=== PATIENT | female | born 1975 | race Caucasian/White ===

== ENCOUNTER 2018-01-09 09:37 | Observation (INO) ==
[2018-01-09] MEDS ORDERED: 0.9 % Sodium Chloride 1,000 ML IVC ONE (09:43)
[2018-01-09 09:54] LABS: Basophils # 0.1 K/mcL (0.0-0.2); Basophils % 0.8 %; Eosinophils # 0.1 K/mcL (0.0-0.6); Eosinophils % 1.3 %; Hematocrit 45.8 % (35.3-44.9); Hemoglobin 15.4 g/dL (11.5-15.4); Immature Granulocytes % 0.3 % (0-4); Lymphocytes # 4.1 K/mcL (0.6-4.6); Lymphocytes % 46.8 %; Mean Corpuscular HGB Conc 33.6 g/dL (31.6-35.5); Mean Corpuscular Hemoglobin 29.5 pg (28.0-33.3); Mean Corpuscular Volume 87.7 fL (83.0-100.0); Mean Platelet Volume 11.9 fL (9.4-12.4); Monocytes # 0.6 K/mcL (0.0-1.3); Neutrophils # 3.8 K/mcL (1.6-8.9); Platelet Count 272 K/mcL (140-400); Red Blood Count 5.22 M/mcL (3.82-4.97); Red Cell Distribution Width 12.3 % (11.5-14.5); Segmented Neutrophils % 43.8 %
[2018-01-09] MEDS ORDERED: Alteplase (Activase) 6 MG in EMPTY BAG 1 EACH IVP ONE (09:55)
[2018-01-09] MEDS ORDERED: ALTEPLASE IVPB ONE (09:57)
[2018-01-09 10:06] LABS: Calcium 11.4 mg/dL (8.6-10.3); Carbon Dioxide 27 mEq/L (23-29); Chloride 96 mEq/L (98-107); Sodium 138 mEq/L (136-145)
[2018-01-09 10:11] LABS: BUN/Creatinine Ratio 15 (6-26); Blood Urea Nitrogen 14 mg/dL (6-20); Glucose 139 mg/dL (70-105); Osmolality,Calculated 289 (280-300); eGFR For African Americans > 60 (> 60); eGFR For Non-African Americans > 60 (> 60)
[2018-01-09 10:12] LABS: Prothrombin Time 10.6 Seconds (9.4-12.1)
[2018-01-09 10:15] LABS: Activated Partial Thrombo Time 30.6 Seconds (26.0-36.0)
--- NOTE | 2018-01-09 10:37 | Emergency Department Note ---
Disposition Clinical Impression: Transient neurologic deficit, Pre-syncope, Cerebellar stroke Disposition: Admitted As Inpatient Condition: Fair Time of Disposition: 15:10 Weakness HPI - General Chief complaint: ED Weakness Stated complaint: poss stroke Time Seen by Provider: 01/09/18 09:43 Source: patient Limitations: no limitations Nursing Notes Reviewed: Yes Vital Signs Reviewed: Yes - History of Present Illness HPI Narrative: 42 yo female complains of generalized weakness while using the bathroom here at [facility]. Pt works at [employer]. she suddenly felt flushed weak all over, and diaphoretic and called for help. No LOC. there was concern for stroke and was brought to the ED with last known well 0902 hrs. Pt states she has not had anything like this happen before. Pain Scale: 0 - Related Data Home Medications Medication Instructions Recorded Confirmed ALPRAZolam [Xanax 1 MG Tablet] 1 mg PO TID PRN 01/09/18 01/09/18 Atorvastatin Calcium [Lipitor] 20 mg PO QPM 01/09/18 01/09/18 BuPROPion SR (12 HR) [Wellbutrin 150 mg PO BID 01/09/18 01/09/18 SR] Metoprolol Succinate [Toprol Xl] 100 mg PO DAILY 01/09/18 01/09/18 Omeprazole [PriLOSEC] 20 mg PO DAILY 01/09/18 01/09/18 Pentosan Polysulfate Sodium 100 mg PO TID 01/09/18 01/09/18 [Elmiron] cloNIDine HCl [CloNIDine HCl] 0.1 mg PO BID 01/09/18 01/09/18 Allergies Allergy/AdvReac Type Severity Reaction Status Date / Time No Known Allergies Allergy Verified 05/13/17 15:25 All systems ED: reviewed and negative except as stated. Review of Systems: As Per HPI Constitutional: Reports: weakness. Denies: fever, chills Cardiovascular: Denies: chest pain, palpitations Respiratory: Denies: cough, dyspnea Gastrointestinal: Reports: diarrhea. Denies: abdominal pain, nausea, vomiting Past Medical History - Past Medical History Attestation: Yes The following information was validated with the patient. Source: patient, nursing notes reviewed Medical history: Reports: hypertension Surgical history: Reports: non-contributory Psychiatric history: Reports: anxiety, depression - Social History Smoking Status: Former smoker Smokeless Tobacco Status: No Alcohol use: Reports: none Drug use: Reports: none Physical Exam Vital Signs Temperature 97.4 F L 01/09/18 09:38 Pulse Rate 71 01/09/18 09:38 Respiratory Rate 18 01/09/18 09:38 Blood Pressure 117/94 01/09/18 09:38 O2 Sat by Pulse Oximetry 98 01/09/18 09:38 Temperature 97.4 F L 01/09/18 09:38 Pulse Rate 61 01/09/18 10:10 Respiratory Rate 14 01/09/18 10:10 Blood Pressure 100/64 01/09/18 10:10 O2 Sat by Pulse Oximetry 100 01/09/18 10:04 Oxygen Delivery Oxygen Delivery Room Air CONSTITUTIONAL: Alert and oriented X3, well-nourished, well appearing, and anxious. GCS 15 HEAD: Normocephalic; atraumatic. EYES: PERRL, no scleral icterus. NOSE: The nose is normal in appearance without rhinorrhea RESP: Normal chest excursion with respiration; breath sounds clear and equal bilaterally; no wheezes, rhonchi, or rales CARD: Regular rhythm, without murmurs, rub or gallop ABD: Non-distended; non-tender, soft,without rigidity, rebound or guarding SKIN: Normal for age and race; warm and dry; no apparent lesions NEUROLOGICAL: Patient is alert and oriented times three. Cranial nerves III- XII are intact. Sensory diminished on left UE but motor functions are intact. Strength is 5/5 for flexion and extension in all 3 extremities. 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 Patellar DTRS are equal and intact. Finger to nose testing is equal and normal bilaterally. No dysdiadochokinesis - General Limitations: no limitations General appearance: alert, in distress Course Vital Signs Temperature 97.4 F L 01/09/18 09:38 Pulse Rate 71 01/09/18 09:38 Respiratory Rate 18 01/09/18 09:38 Blood Pressure 117/94 01/09/18 09:38 O2 Sat by Pulse Oximetry 98 01/09/18 09:38 Temperature 98.2 F 01/09/18 19:00 Pulse Rate 61 01/09/18 19:00 Respiratory Rate 20 01/09/18 19:00 Blood Pressure 115/83 01/09/18 19:00 O2 Sat by Pulse Oximetry 98 01/09/18 19:00 Oxygen Delivery Oxygen Delivery Room Air Weakness - MDM Narrative Medical decision making narrative: generalized weakness with some focal deficits: CVA: Stroke / TIA, syncope/pre- syncope. NIH 4 Stroke alert called, the findings of limited ataxia, and decrease in sensation to left upper extremity. Patient was sent for CT head. Radiologist's read as no clear signs of stroke but made a comment of a left occipital lobe hypodense area and asked if patient had any visual field defects, but Patient did not have any visual field defects. After evaluation by [facility] neurologists who recommended no TPA but suspect cerebellar infarct and recommend admission and further workup. He states is up to the patient whether the patient wanted to be transferred to [facility] or remained here to [facility]. The patient agreed to stay at a [facility]. Given the patient's onset of symptoms that sound more like presyncope versus stroke with associated anxiety attack, especially with patient's quick resolution of symptoms after she calmed down, I feel the patient should have a positive recovery. However, we cannot fully and clearly rule out stroke/TIA is why I concur with decision for admission. Patient is accepted for admission by Brisa the hospitalist in stable condition. - Lab Data Lab results reviewed: Yes I reviewed the patient's lab results. Lab results narrative: Short CBC 01/09/18 Range/Units 09:40 WBC 8.7 (4.3-11.1) K/mcL Hgb 15.4 (11.5-15.4) g/dL Hct 45.8 H (35.3-44.9) % Plt Count 272 (140-400) K/mcL Neutrophils # 3.8 (1.6-8.9) K/mcL BMP 01/09/18 Range/Units 09:40 Sodium 138 (136-145) mEq/L Potassium 3.0 L (3.5-5.1) mEq/L Chloride 96 L (98-107) mEq/L Carbon Dioxide 27 (23-29) mEq/L BUN 14 (6-20) mg/dL Creatinine 0.94 (0.60-1.20) mg/dL Glucose 139 H (70-105) mg/dL Calcium 11.4 H (8.6-10.3) mg/dL Cardiac Enzymes 01/09/18 Range/Units 09:40 Troponin I < 0.03 (< 0.04) ng/mL Result diagrams: 01/09/18 09:40 01/09/18 09:40 Lab Results 01/09/18 01/09/18 01/09/18 Range/Units 09:40 09:40 09:40 WBC 8.7 (4.3-11.1) K/mcL RBC 5.22 H (3.82-4.97) M/mcL Hgb 15.4 (11.5-15.4) g/dL Hct 45.8 H (35.3-44.9) % MCV 87.7 (83.0-100.0) fL MCH 29.5 (28.0-33.3) pg MCHC 33.6 (31.6-35.5) g/dL RDW 12.3 (11.5-14.5) % Plt Count 272 (140-400) K/mcL MPV 11.9 (9.4-12.4) fL Immature Gran % 0.3 (0-4) % Seg Neutrophils % 43.8 % Lymphocytes % 46.8 % Monocytes % 7.0 % Eosinophils % 1.3 % Basophils % 0.8 % Neutrophils # 3.8 (1.6-8.9) K/mcL Lymphocytes # 4.1 (0.6-4.6) K/mcL Monocytes # 0.6 (0.0-1.3) K/mcL Eosinophils # 0.1 (0.0-0.6) K/mcL Basophils # 0.1 (0.0-0.2) K/mcL PT 10.6 (9.4-12.1) Seconds INR 1.0 APTT 30.6 (26.0-36.0) Seconds Sodium 138 (136-145) mEq/L Potassium 3.0 L (3.5-5.1) mEq/L Chloride 96 L (98-107) mEq/L Carbon Dioxide 27 (23-29) mEq/L BUN 14 (6-20) mg/dL Creatinine 0.94 (0.60-1.20) mg/dL Est GFR ( Amer) > 60 (> 60) Est GFR (Non-Af Amer) > 60 (> 60) BUN/Creatinine Ratio 15 (6-26) Glucose 139 H (70-105) mg/dL Calculated Osmolality 289 (280-300) Calcium 11.4 H (8.6-10.3) mg/dL Troponin I (< 0.04) ng/mL Urine Test (Negative) Stl C. diff Tox B Gene (Negative) Urine Opiates Screen (Vliisj=051) ng/mL Ur Barbiturates Screen (Upgdce=508) ng/mL Ur Phencyclidine Scrn (Cutoff=25) ng/mL Ur Amphetamines Screen (Ngxuie=7078) ng/mL U Benzodiazepines Scrn (Dcjeoa=734) ng/mL Urine Cocaine Screen (Cutoff= 300) ng/mL U Marijuana (THC) Screen (Cutoff = 50) ng/mL 01/09/18 01/09/18 01/09/18 Range/Units 09:40 11:01 11:01 WBC (4.3-11.1) K/mcL RBC (3.82-4.97) M/mcL Hgb (11.5-15.4) g/dL Hct (35.3-44.9) % MCV (83.0-100.0) fL MCH (28.0-33.3) pg MCHC (31.6-35.5) g/dL RDW (11.5-14.5) % Plt Count (140-400) K/mcL MPV (9.4-12.4) fL Immature Gran % (0-4) % Seg Neutrophils % % Lymphocytes % % Monocytes % % Eosinophils % % Basophils % % Neutrophils # (1.6-8.9) K/mcL Lymphocytes # (0.6-4.6) K/mcL Monocytes # (0.0-1.3) K/mcL Eosinophils # (0.0-0.6) K/mcL Basophils # (0.0-0.2) K/mcL PT (9.4-12.1) Seconds INR APTT (26.0-36.0) Seconds Sodium (136-145) mEq/L Potassium (3.5-5.1) mEq/L Chloride (98-107) mEq/L Carbon Dioxide (23-29) mEq/L BUN (6-20) mg/dL Creatinine (0.60-1.20) mg/dL Est GFR ( Amer) (> 60) Est GFR (Non-Af Amer) (> 60) BUN/Creatinine Ratio (6-26) Glucose (70-105) mg/dL Calculated Osmolality (280-300) Calcium (8.6-10.3) mg/dL Troponin I < 0.03 (< 0.04) ng/mL Urine Test Negative (Negative) Stl C. diff Tox B Gene (Negative) Urine Opiates Screen Negative (Qkgxth=157) ng/mL Ur Barbiturates Screen Negative (Fwchvr=317) ng/mL Ur Phencyclidine Scrn Negative (Cutoff=25) ng/mL Ur Amphetamines Screen Negative (Xhrehc=6553) ng/mL U Benzodiazepines Scrn Positive H (Qcvqaj=616) ng/mL Urine Cocaine Screen Negative (Cutoff= 300) ng/mL U Marijuana (THC) Screen Negative (Cutoff = 50) ng/mL 01/09/18 01/09/18 Range/Units 14:01 15:15 WBC (4.3-11.1) K/mcL RBC (3.82-4.97) M/mcL Hgb (11.5-15.4) g/dL Hct (35.3-44.9) % MCV (83.0-100.0) fL MCH (28.0-33.3) pg MCHC (31.6-35.5) g/dL RDW (11.5-14.5) % Plt Count (140-400) K/mcL MPV (9.4-12.4) fL Immature Gran % (0-4) % Seg Neutrophils % % Lymphocytes % % Monocytes % % Eosinophils % % Basophils % % Neutrophils # (1.6-8.9) K/mcL Lymphocytes # (0.6-4.6) K/mcL Monocytes # (0.0-1.3) K/mcL Eosinophils # (0.0-0.6) K/mcL Basophils # (0.0-0.2) K/mcL PT (9.4-12.1) Seconds INR APTT (26.0-36.0) Seconds Sodium (136-145) mEq/L Potassium (3.5-5.1) mEq/L Chloride (98-107) mEq/L Carbon Dioxide (23-29) mEq/L BUN (6-20) mg/dL Creatinine (0.60-1.20) mg/dL Est GFR ( Amer) (> 60) Est GFR (Non-Af Amer) (> 60) BUN/Creatinine Ratio (6-26) Glucose (70-105) mg/dL Calculated Osmolality (280-300) Calcium (8.6-10.3) mg/dL Troponin I < 0.03 (< 0.04) ng/mL Urine Test (Negative) Stl C. diff Tox B Gene Negative (Negative) Urine Opiates Screen (Futvpj=928) ng/mL Ur Barbiturates Screen (Scblql=063) ng/mL Ur Phencyclidine Scrn (Cutoff=25) ng/mL Ur Amphetamines Screen (Diqqvy=3567) ng/mL U Benzodiazepines Scrn (Vhvers=200) ng/mL Urine Cocaine Screen (Cutoff= 300) ng/mL U Marijuana (THC) Screen (Cutoff = 50) ng/mL - Radiology Data Radiology results reviewed: Yes I reviewed the patient's radiology results. Head CT 01/09/18 09:44 IMPRESSION: 1. No intracranial hemorrhage 2. Questionable findings of early left occipital lobe ischemia. Recommend correlation with exam findings D/ / Joe Chen MD / Joe Chen MD Interpreting Provider: Joe Chen MD - EKG Data EKG attestation: Yes I reviewed and interpreted this EKG. EKG results narrative: EKG taken 01/09/2018 at 0 940 3R shows a sinus rhythm had a rate of 72 beats. With no signs of ischemia or ST elevations or depressions and a leads. No old EKG for comparison. Attestation Statement - Attestation Attestation: I, Dexter Wright, examined this patient and my medical decision-making was reviewed with the ATTACHER/PA/Advanced Practice Nurse/Resident Physician. I agree with the documented findings, disposition and treatment plan as described except to the extent set forth below. 42-year-old female presents to emergency Department with concerns of near syncopal event with possible CVA. Patient states she had multiple episodes of diarrhea this morning. Prior to arrival she had difficulty making it to the employee bathroom however when she started having a bowel movement she became lightheaded, started to sweat and felt the ground. On initial evaluation the patient had tingling of left sided face, she had increased weakness of the left upper and lower extremity compared to the right. Stroke alert was initiated however patient improved quickly. The neurologist recommended she was not a candidate for emergent TPA however he did recommend patient be admitted to the hospital for further evaluation of possible cerebellar infarct secondary to ataxia noted during exam. Patient denies recent fever. She had no further episodes of diarrhea in the emergency department. Patient will be admitted to the hospital for further care and evaluation. TPA Checklist - LKW: 3-4.5 hrs Add. Warnings/Precautions Patient/family understanding: The patient/family members have been counseled and understood the risk, benefit , and alternatives of treatment. NIH Stroke Scale - Level of Consciousness LOC: Alert - LOC Questions LOC Questions: Answers both correctly - LOC Commands LOC Commands: Performs both correctly - Best Gaze Best Gaze: Normal - Visual Visual: No visual loss - Facial Palsy Facial Palsy: Normal - Motor Arms Motor Arm-Left: No drift for 10 seconds Motor Arm-Right: No drift for 10 seconds - Motor Legs Motor Leg-Left: Some effort against gravity, limb drifts to bed Motor Leg-Right: No drift for 5 seconds - Limb Ataxia Limb Ataxia: Present in ONE limb - Sensory Sensory: Mild to moderate loss, "not as sharp" - Best Language Best Language: No aphasia - Dysarthria Dysarthria: Normal - Extinction and Inattention Extinction and Inattention: Normal - NIHSS Total Score NIHSS Total Score: 4
[2018-01-09 11:38] LABS: Amphetamine Screen,Urine Negative ng/mL (Cutoff=1000); Barbiturate Screen,Urine Negative ng/mL (Cutoff=200); Benzodiazepines Screen,Urine Positive ng/mL (Cutoff=200); Cannabinoid Screen,Urine Negative ng/mL (Cutoff = 50); Cocaine Screen,Urine Negative ng/mL (Cutoff= 300); Opiate Screen,Urine Negative ng/mL (Cutoff=300); Phencyclidine Screen,Urine Negative ng/mL (Cutoff=25)
[2018-01-09] MEDS ORDERED: Naloxone 0.4 MG/ML INJ IVP PRN (12:54)
--- NOTE | 2018-01-09 13:06 | Internal Med History&Physical ---
Date of Encounter: 01/09/18 Time of Encounter: 13:03 Assessment and Plan (1) CVA (cerebral vascular accident) Current visit: Yes Status: Acute CVA-presents acute onset of left-sided weakness, numbness and tingling and slurred speech. She reports her symptoms have improved since she arrived to the ED. Slurred speech has resolved. CT of the head reveals some concern for left occipital lobe ischemia. Her LKW was at 0900 this morning. She reports dizziness, profound weakness and left-sided weakness as well as numbness and tingling. Per my assessment she has left-sided focal deficits. No prior history of TIA or CVA. She is a non-smoker, with a h/o HTN. -MRI head/brain without contrast -BL Carotid doppler -TTE now -Start ASA 325, first dose now then daily -Continue Statin but increase dose to 80 mg and give now -Her blood pressure is at baseline, continue Antihypertensives -CBC, BMPLipid panel in am -NIHSS now -Dysphagia screening now -Neuro checks q2hrs/per protocol -Consult Neurology- spoke with Dr. Arevalo who has agreed to see the patient. His recommendation is given 325 mg of ASA now. -Heparin 5000units SC BID -Regular diet Qualifiers: CVA mechanism: unspecified Qualified Code(s): I63.9 - Cerebral infarction, unspecified (2) Acute left-sided weakness Current visit: Yes Status: Acute LKW this morning at 0900. She reports that the Lt sided weakness is improving. Secondary to suspected Lt occipital CVA See plan above (3) HTN (hypertension) Current visit: Yes Status: Acute stable, resume antiHTN medications Qualifiers: Hypertension type: essential hypertension Qualified Code(s): I10 - Essential (primary) hypertension (4) Diarrhea Current visit: Yes Status: Acute Began this morning x2 episodes. Unclear if this is infectious. 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 Clarke is a 42 year old female with PMH of hypertension. She reports that little after 9 and returning began experiencing generalized weakness as well as weakness on the left side of her body and numbness and tingling. She reports that while in the restroom she began to feel flush and weak and diaphoretic. She attempted to walk to get help but she was too weak to ambulate so she safely lowered herself to the ground and called for help. Her last known well was 0900. She denies any prior history of CVA or TIA. Denies any fever, chills , chest pain, shortness of breath or unilateral extremity pain or swelling. She admits to dizziness, numbness and tingling over her entire body, slurred speech, generalized weakness as well as weakness to left upper and lower extremity. Past Med Surg Social Fam HX - Past Medical History Medical history: hypertension Psychiatric history: anxiety, depression - Past Surgical History Surgical History: non-contributory - Social History Smoking Status: Former smoker Smokeless Tobacco Status: No Alcohol use: none Drug use: none - Family History Father Living Status: Cause of : [place] [facility] - H&P: Meds ALPRAZolam [Xanax 1 MG Tablet] 1 mg PO TID PRN 01/09/18 [History] Atorvastatin Calcium [Lipitor] 20 mg PO QPM 01/09/18 [History] BuPROPion SR (12 HR) [Wellbutrin SR] 150 mg PO BID 01/09/18 [History] Metoprolol Succinate [Toprol Xl] 100 mg PO DAILY 01/09/18 [History] Omeprazole [PriLOSEC] 20 mg PO DAILY 01/09/18 [History] Pentosan Polysulfate Sodium [Elmiron] 100 mg PO TID 01/09/18 [History] cloNIDine HCl [CloNIDine HCl] 0.1 mg PO BID 01/09/18 [History] 3 Allergy/AdvReac Type Severity Reaction Status Date / Time No Known Allergies Allergy Verified 05/13/17 15:25 All Systems PM: A 10-system review of systems was performed and is negative for pertinent findings except as documented above in the HPI. - Constitutional Constitutional: as per HPI - EENT Eyes: as per HPI, no blurry vision, no change in vision, no loss of peripheral vision, no loss of vision Nose, mouth and throat: as per HPI - Cardiovascular Cardiovascular ROS IM: irregular heart rhythm, lightheadedness, palpitations, no chest pain, no dyspnea, no dyspnea on exertion, no edema, no syncope - Respiratory Respiratory: no cough, no dyspnea, no wheezing, no excessive phlegm production - Gastrointestinal Gastrointestinal: abdominal pain (crampy pain), diarrhea (began today) - Genitourinary Genitourinary: no change in urinary stream, no dysuria, no flank pain, no hematuria - Musculoskeletal Musculoskeletal ROS IM: no numbness, no tingling - Integumentary Integumentary IM: no rash, no unusual bruising - Neurological Neurological ROS: as per HPI, abnormal speech, dizziness, focal weakness, numbness, tingling, weakness, no abnormal gait, no abnormal hearing, no abnormal movements, no behavioral changes, no burning sensations, no confusion, no convulsions, no headache(s), no lack of coordination, no loss of vision, no tremor(s), no vertigo - Constitutional Vitals: Temp Pulse Resp BP Pulse Ox 97.4 F L 64 18 138/98 100 01/09/18 09:38 01/09/18 11:46 01/09/18 11:46 01/09/18 11:46 01/09/18 11:46 General appearance: Present: cooperative, A&O X 3, no acute distress, answers questions appropriately - Head Head exam: Present: atraumatic, normocephalic - Eye Eye exam: Present: PERRL, conjuntiva pink, sclera anicteric Pupils: Present: PERRL - Neck Neck exam general surgery: Present: supple, trachea midline. Absent: lymphadenopathy - Respiratory Respiratory exam: Present: CTAB. Absent: accessory muscle use, rales, rhonchi, wheezes - Cardiovascular Cardiovascular exam: Present: RRR, +S1, +S2. Absent: diastolic murmur, gallop, rubs, systolic murmur - GI/Abdominal GI/Abdominal exam: Present: normal bowel sounds, soft, no peritoneal signs. Absent: distended, tenderness - Extremities Exam Extremities exam: Present: warm, radial pulses palpable and symmetrical. Absent : calf tenderness, cyanotic, pedal edema - Neurological Exam Neurological exam: Present: alert, oriented X3, pronater drift (Lt arm pronator drift). Absent: strengths equal and symetr throughout, facial droop, speech deficit - Expanded Neurological Exam Neurological exam expanded: Absent: expressive aphasia, receptive aphasia Patient oriented to: Present: person, place, time Speech: Present: fluid speech. Absent: slurred (reports that it was initially slurred but has improved) Cranial Nerves: EOM's intact PM: Normal, gag reflex PM: Normal, nystagmus PM: Normal, tongue deviation PM: Normal Cerebellar function: finger to nose: Normal, heel to aguilar: Abnormal Left Upper motor neuron: Babinski sign: Normal, Boo neglect: Normal, pronator drift : Abnormal Left, sensory extinction: Normal Neuro motor strength exam: LUE: 4, RUE: 5, LLE: 4, RLE: 5 Coma Scale Eye Opening: Spontaneous Coma Scale Motor Response: Obeys Commands Coma Scale Verbal Response: Oriented Coma Scale Total: 15 - Skin Skin exam: Present: dry, intact Internal Med - H&P Results - Labs CBC & Chem 7: 01/09/18 09:40 01/09/18 09:40 Labs: Short CBC 01/09/18 Range/Units 09:40 WBC 8.7 (4.3-11.1) K/mcL Hgb 15.4 (11.5-15.4) g/dL Hct 45.8 H (35.3-44.9) % Plt Count 272 (140-400) K/mcL Neutrophils # 3.8 (1.6-8.9) K/mcL BMP 01/09/18 09:40 Sodium 138 Potassium 3.0 L Chloride 96 L Carbon Dioxide 27 BUN 14 Creatinine 0.94 Glucose 139 H Calcium 11.4 H Cardiac Enzymes 01/09/18 Range/Units 09:40 Troponin I < 0.03 (< 0.04) ng/mL - EKG Data -: EKG Interpreted by Myself EKG shows normal: sinus rhythm - EKG Data Prior EKG available for review: yes When compared to previous EKG: there is no significant change Interpretation IM: normal EKG EKG comments: NSR 72 no ischemic changes 01/09/18 13:12 - Impressions ITS Impressions Head CT 01/09/18 09:44 IMPRESSION: 1. No intracranial hemorrhage 2. Questionable findings of early left occipital lobe ischemia. Recommend correlation with exam findings D/ / Joe Chen MD / Joe Chen MD Interpreting Provider: Joe Chen MD
--- NOTE | 2018-01-09 15:07 | Neurology - Consult Note ---
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 She was brought to the emergency department and a code stroke was called where she was evaluated by [facility] neurology and found to have diminished heel to aguilar using her left foot. All her other symptoms resolved spontaneously without intervention. - Initial vitals demonstrate temperature 97.4, heart rate 71, respirations 18, blood pressure 117/94, oxygen saturation 98% on room air. The blood pressure is low compared to what she states is her baseline of SBP 160-200 which may be a contributing factor. - CT of the brain demonstrates questionable findings of early left occipital lobe ischemia. Correlating with physical examination she denies any visual changes, and no loss of visual wilson were demonstrated on clinical examination. Ophthalmic examination, I did not appreciate any retinal vascularity hemorrhaging or noticeable changes. At this time there does not appear to be any appreciable correlation. - Patient states that she has new left distal lower extremity weakness and difficulty with left heel to right aguilar motor coordination. This is appreciated on initial examphysical examination, though improved with repeat actions. Of note she does have a history of sciatica and bulging disc to the left lower extremity which may be contributing to these symptoms. DDX: Possible CVA vs. TIA though clinical examination and imaging do not correlate, may be hypoperfusion, vasovagal episode in the setting of new onset diarrhea plus antihypertensive medications. Also possible secondary effects from medications as she is taking Wellbutrin, clonidine, Effexor. Drug screen positive for benzodiazepines, patient takes Xanax 1 mg by mouth 3 times a day when necessary for anxiety. Plan: - MRI of the brain resulted as no acute intracranial abnormalities. Clinical examination does not correlate with acute stroke. - Cardiac monitoring for possible arrhythmia - Further treatment for diarrhea and review of medications per primary team. (2) Hypercalcemia Current Visit: Yes Status: Acute Patient has elevated calcium on labs at 11.4, which is higher than previous recorded calcium levels. possible metabolic or endocrine process. No albumin levels on current labs. Further evaluation per primary team. (3) Diarrhea Current Visit: Yes Status: Acute Qualifiers: Diarrhea type: unspecified type Qualified Code(s): R19.7 - Diarrhea, unspecified History of Present Illness Chief complaint: weakness HPI: Ms. Clarke is a 42 year old female past medical history of hypertension, anxiety, depression, sciatica of the left lower extremity, was brought to the emergency department for concerns of stroke. She states that she was dropped off by her for work she had to use the bathroom where she had an episode of diarrhea followed by diaphoresis, diffuse weakness lightheadedness, numbness/tingling and visual changes. She states that she tried to walk from the public bathroom to her employee bathroom and was so weak that she collapsed and her muscles tightened up in her hands and legs. After arriving to the emergency department she continues to have several episodes of loose, smelly diarrhea episodes. She says that her blood pressure is usually very high with systolic around 200 and diastolic around 100 on her current medical regimen and she is roughly between 160-200 systolically. She states that her blood pressures are very low compared to her normal blood pressures currently. She denies ever having symptoms like this prior. She denies any history of CVA, weakness tingling or numbness to this extent. She states that her grandfather had a CVA in the past. She denies any known history of clotting disorders, stroke, DVT or pulmonary embolism. She denies any recent changes to her medications or missing any doses of medications. With review of her medical history she states that she currently is having bad menopausal symptoms with recurrence of hot flashes and diaphoresis frequently throughout the day for which she says she has not taking medications for. She is a previous smoker quit 1 month ago. She denies any substance use outside of what is prescribed to her. With regards to her sciatica she states that she was injured on the job has a bulging disc and sciatica affecting her left lower extremity. She states that the weakness she currently has her left lower extremity is different than her baseline. She currently states that her muscle strength is back to baseline, denies any difficulty with grabbing objects or writing. The tingling and numbness has resolved on its own, she denies any visual loss, brightness, tunnel vision, double vision or diminished vision. She does not wear glasses or contacts. She states the only residual concern is weakness in her distal left lower extremity. Past Med Surg Social Fam HX - Past Medical History Medical history: hypertension Psychiatric history: anxiety, depression - Past Surgical History Surgical History: non-contributory - Social History Smoking Status: Former smoker Smokeless Tobacco Status: No Alcohol use: none Drug use: none - Family History Father Living Status: Cause of : [place] Medications and Allergies ALPRAZolam [Xanax 1 MG Tablet] 1 mg PO TID PRN 01/09/18 [History] Atorvastatin Calcium [Lipitor] 20 mg PO QPM 01/09/18 [History] BuPROPion SR (12 HR) [Wellbutrin SR] 150 mg PO BID 01/09/18 [History] Metoprolol Succinate [Toprol Xl] 100 mg PO DAILY 01/09/18 [History] Omeprazole [PriLOSEC] 20 mg PO DAILY 01/09/18 [History] Pentosan Polysulfate Sodium [Elmiron] 100 mg PO TID 01/09/18 [History] cloNIDine HCl [CloNIDine HCl] 0.1 mg PO BID 01/09/18 [History] 3 Allergy/AdvReac Type Severity Reaction Status Date / Time No Known Allergies Allergy Verified 05/13/17 15:25 All Systems: A 10-system review of systems was performed and is negative for pertinent findings except as documented above in the HPI. - Constitutional Constitutional ROS IM: weakness, no fatigue, no fever(s), no headache(s) - Nose, Mouth, Throat Nose, mouth and throat: no abnormal hearing, no dizziness, no dysphagia, no headache(s) - Cardiovascular Cardiovascular ROS IM: diaphoresis, no chest pain, no chest pain at rest, no chest pain with activity, no dyspnea, no edema, no irregular heart rhythm, no orthopnea, no palpitations, no slow heart rate - Respiratory Respiratory IM: no cough, no dyspnea, no wheezing - Gastrointestinal Gastrointestinal: bloating, change in stool character, loose stools, no melena, no vomiting - Musculoskeletal Musculoskeletal ROS IM: numbness, tingling - Integumentary Integumentary IM: no swelling - Neurological Neurological ROS: dizziness, numbness, tingling, weakness, no abnormal hearing, no abnormal speech, no behavioral changes, no burning sensations, no confusion, no convulsions, no lack of coordination, no loss of vision, no memory loss - Psychiatric Psychiatric general PM: no confusion, no paranoia - Endocrine Endocrine IM: excessive sweating, flushing Physical Examination - Vital Signs Vital Signs: Initial Vital Signs Temp Pulse Resp BP Pulse Ox 97.4 F L 71 18 117/94 98 01/09/18 09:38 01/09/18 09:38 01/09/18 09:38 01/09/18 09:38 01/09/18 09:38 - Constitutional General appearance: comfortable - Neurologic Detailed motor examination: full strength in all major muscle groups Motor examination - right side: 5/5: deltoids, biceps, triceps, wrist flexion, wrist extension, admissions clinician, hip flexors, tibialis Anterior, quadriceps, toe extension (EHL), plantarflexion Motor examination - left side: 5/5: deltoids, biceps, triceps, wrist flexion, wrist extension, hip flexors, admissions clinician, quadriceps, tibialis Anterior, toe extension (EHL), plantarflexion Reflex and gait examination: intact Reflexes: Biceps: 2+, Triceps: 2+, Brachioradialis: 2+, Patella: 2+, Achilles: 2 + Mental Status Examination: awake, alert, oriented to person, oriented to place, oriented to time, follows commands appropriately, answers questions appropriately, no agnosia, no aphasia, no aproxia, lucid Cranial nerve examination: PERRL, EOMI, visual wilson intact, corneal reflexes brisk symmetrically, sensory to face intact, mastication intact, no facial asymmetry is present, no dysarthria, hearing is intact symmetrically, soft palate elevates bilaterally upon phonation, gag reflex intact, flexes SCM and trapezius muscles symmetrically with full power, tongue protrudes midline, no atrophy or facial fasiculations present Cerebellar examination: no dysmetria, performs finger to nose and heel to aguilar symmetrically without ataxia, no gait ataxia, no truncal ataxia, no difficulty with rapid alternating movements Results - Laboratory Findings CBC and BMP: 01/09/18 09:40 01/09/18 09:40 Abnormal lab findings: Abnormal lab results RBC 5.22 M/mcL (3.82-4.97) H 01/09/18 09:40 Hct 45.8 % (35.3-44.9) H 01/09/18 09:40 Potassium 3.0 mEq/L (3.5-5.1) L 01/09/18 09:40 Chloride 96 mEq/L (98-107) L 01/09/18 09:40 Glucose 139 mg/dL (70-105) H 01/09/18 09:40 Calcium 11.4 mg/dL (8.6-10.3) H 01/09/18 09:40 U Benzodiazepines Scrn Positive ng/mL (Euwzxn=725) H 01/09/18 11:01 Consult Discharge Plan - Plan Referrals: Vinay Ferrell Jr, MD [Primary Care Provider] - <Jillian Arevalo I - Last Filed: 01/10/18 13:23> Date of Encounter: 01/09/18 All Systems: A 10-system review of systems was performed and is negative for pertinent findings except as documented above in the HPI. Physical Examination - Vital Signs Vital Signs: Initial Vital Signs Temp Pulse Resp BP Pulse Ox 97.4 F L 71 18 117/94 98 01/09/18 09:38 01/09/18 09:38 01/09/18 09:38 01/09/18 09:38 01/09/18 09:38 Results - Laboratory Findings CBC and BMP: 01/10/18 04:38 01/10/18 04:38 Abnormal lab findings: Abnormal lab results RBC 5.22 M/mcL (3.82-4.97) H 01/09/18 09:40 Hct 45.8 % (35.3-44.9) H 01/09/18 09:40 Potassium 3.0 mEq/L (3.5-5.1) L 01/09/18 09:40 Chloride 96 mEq/L (98-107) L 01/09/18 09:40 Glucose 139 mg/dL (70-105) H 01/09/18 09:40 Calcium 11.4 mg/dL (8.6-10.3) H 01/09/18 09:40 U Benzodiazepines Scrn Positive ng/mL (Cxpvee=239) H 01/09/18 11:01 - Attending Attestation pt was seen and examined I agreed with Resident documentation. On my examination I did not see any focal neurological deficit. Particularly no evidence of any visual changes or any other focal abnormality on her current neurological examination. Reviewed the CT scan indeed there was a concern that it could be a left [employer]ENT [employer] evolving infarct perhaps is an artifact as I have reviewed the MRI of her brain which was just done few minutes ago and it did not show any evidence of a stroke in fact it is a completely normal MRI of the brain. Patient's symptoms history is likely related to vasovagal perhaps due to dehydration and diarrhea. No evidence of acute stroke on clinical examination on MRI of the brain and other workup is as per primary team Jillian Arevalo MD
[2018-01-09] MEDS: 0.9 % Sodium Chloride 1,000 ML IVC SCH ×2 (15:19→22:00)
[2018-01-09] MEDS: Aspirin 325 MG TABLET PO SCH (15:20)
[2018-01-09] MEDS: (Pentosan Polysulfate Sodium [Elmiron] 100 MG) PO SCH ×2 (15:22→21:54)
[2018-01-09] MEDS ORDERED: NON-FORMULARY MEDICATION 1 EACH EACH (Atorvastatin Calcium [Lipitor] 20 MG) PO SCH (18:00)
[2018-01-09] MEDS: *HR* Heparin 5,000 UNIT/ML VIAL SQ SCH (21:49)
[2018-01-09] MEDS: BuPROPion SR (12 HR) 150 MG TABLET PO SCH (21:52)
[2018-01-09] MEDS: cloNIDine HCl 0.1 MG TABLET PO SCH (21:52)
[2018-01-09] MEDS: ALPRAZolam 0.5 MG TABLET PO PRN (21:59)
[2018-01-10] MEDS: 0.9 % Sodium Chloride 1,000 ML IVC SCH (04:27)
[2018-01-10 04:59] LABS: Hematocrit 36.2 % (35.3-44.9); Mean Corpuscular HGB Conc 32.3 g/dL (31.6-35.5); Mean Corpuscular Hemoglobin 29.6 pg (28.0-33.3); Mean Corpuscular Volume 91.6 fL (83.0-100.0); Mean Platelet Volume 11.9 fL (9.4-12.4); Platelet Count 181 K/mcL (140-400); Red Blood Count 3.95 M/mcL (3.82-4.97); Red Cell Distribution Width 12.5 % (11.5-14.5)
[2018-01-10 05:01] LABS: Hemoglobin 11.7 g/dL (11.5-15.4)
[2018-01-10] MEDS: *HR* Heparin 5,000 UNIT/ML VIAL SQ SCH ×2 (05:18→17:36)
[2018-01-10 05:42] LABS: BUN/Creatinine Ratio 17 (6-26); Blood Urea Nitrogen 12 mg/dL (6-20); Carbon Dioxide 29 mEq/L (23-29); Chloride 107 mEq/L (98-107); Chol/HDL Ratio 3.3 (0-4.9); Cholesterol 137 mg/dL (< 200); Glucose 95 mg/dL (70-105); HDL Cholesterol 42 mg/dL (40-59); LDL Cholesterol,Calculated 77 mg/dL (0-99); Osmolality,Calculated 290 (280-300); Sodium 140 mEq/L (136-145); Triglycerides 91 mg/dL (< 150); eGFR For African Americans > 60 (> 60); eGFR For Non-African Americans > 60 (> 60)
[2018-01-10] MEDS: (Pentosan Polysulfate Sodium [Elmiron] 100 MG) PO SCH ×3 (09:27→21:21)
[2018-01-10] MEDS: cloNIDine HCl 0.1 MG TABLET PO SCH (09:32)
[2018-01-10] MEDS: Aspirin 325 MG TABLET PO SCH (09:32)
[2018-01-10] MEDS: BuPROPion SR (12 HR) 150 MG TABLET PO SCH ×2 (09:32→21:15)
[2018-01-10] MEDS: Metoprolol XL (24 HR) Succ 50 MG TAB.ER.24H PO SCH (09:35)
[2018-01-10] MEDS: ALPRAZolam 0.5 MG TABLET PO PRN ×2 (10:48→21:17)
[2018-01-10] MEDS: Ibuprofen 800 MG TABLET PO PRN ×2 (10:48→21:17)
[2018-01-10] MEDS ORDERED: 0.9 % Sodium Chloride 1,000 ML IVC ONE (12:21)
--- NOTE | 2018-01-10 18:46 | Electrocardiograph Report ---
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
--- NOTE | 2018-01-10 21:21 | Internal Med Progress Note ---
Date of Encounter: 01/14/18 Time of Encounter: 10:19 - Assessment and plan (1) Acute left-sided weakness Status: Acute Assessment and plan: Resolved, likely from dehydration. She will needed additional IV fluids today. (2) Diarrhea Status: Acute Qualifiers: Diarrhea type: unspecified type Qualified Code(s): R19.7 - Diarrhea, unspecified (3) HTN (hypertension) Status: Acute Assessment and plan: Patient currently hypotensive likely from dehydration, will hold BP meds and give IV fluids and monitor. Qualifiers: Hypertension type: essential hypertension Qualified Code(s): I10 - Essential (primary) hypertension (4) Hypokalemia Status: Acute (5) DVT prophylaxis Status: Acute - Subjective Interval history: Patient hypotensive overnight, states she never gets hypotensive usually. Diarrhea is improving. - Constitutional Vitals: Temp Pulse Resp BP Pulse Ox 98.3 F 72 14 117/82 99 01/10/18 19:15 01/10/18 19:15 01/10/18 19:15 01/10/18 19:15 01/10/18 19:15 General appearance: Present: cooperative, A&O X 3, no acute distress, answers questions appropriately - Head Head exam: Present: atraumatic, normocephalic - Eye Eye exam: Present: PERRL, conjuntiva pink, sclera anicteric Pupils: Present: PERRL - Neck Neck exam general surgery: Present: supple, trachea midline. Absent: lymphadenopathy - Respiratory Respiratory exam: Present: CTAB. Absent: accessory muscle use, rales, rhonchi, wheezes - Cardiovascular Cardiovascular exam: Present: RRR, +S1, +S2. Absent: diastolic murmur, gallop, rubs, systolic murmur - GI/Abdominal GI/Abdominal exam: Present: normal bowel sounds, soft, no peritoneal signs. Absent: distended, tenderness - Extremities Exam Extremities exam: Present: warm, radial pulses palpable and symmetrical. Absent : calf tenderness, cyanotic, pedal edema - Neurological Exam Neurological exam: Present: CN II-XII intact, oriented X3, no focal deficits. Absent: pronater drift, facial droop, speech deficit - Skin Skin exam: Present: dry, intact Internal Medicine: Result - Labs CBC & Chem 7: 01/11/18 06:04 01/11/18 06:04 Labs: Short CBC 01/10/18 Range/Units 04:38 WBC 6.6 (4.3-11.1) K/mcL Hgb 11.7 D (11.5-15.4) g/dL Hct 36.2 (35.3-44.9) % Plt Count 181 (140-400) K/mcL BMP 01/10/18 04:38 Sodium 140 Potassium 4.0 D Chloride 107 Carbon Dioxide 29 BUN 12 Creatinine 0.69 Glucose 95 Calcium 9.0 - ABG Interpretation ABG results: PT/INR, D-dimer PT 10.6 Seconds (9.4-12.1) 01/09/18 09:40 Consult Discharge Plan - Plan Instructions: Chronic Hypertension (DC) Referrals: Vinay Ferrell Jr, MD [Primary Care Provider] - 01/18/18 10:00 am Jillian Arevalo MD [Partnered Physician] - 01/18/18 12:45 pm Prescriptions: Aspirin 325 mg PO DAILY #30 tablet Atorvastatin [Lipitor] 40 mg PO HS #30 tablet
[2018-01-11] MEDS: *HR* Heparin 5,000 UNIT/ML VIAL SQ SCH (04:59)
[2018-01-11 06:31] LABS: Basophils % 0.7 %; Eosinophils # 0.2 K/mcL (0.0-0.6); Eosinophils % 3.4 %; Hematocrit 35.4 % (35.3-44.9); Hemoglobin 11.5 g/dL (11.5-15.4); Immature Granulocytes % 0.2 % (0-4); Lymphocytes # 2.3 K/mcL (0.6-4.6); Lymphocytes % 39.9 %; Mean Corpuscular HGB Conc 32.5 g/dL (31.6-35.5); Mean Corpuscular Hemoglobin 29.8 pg (28.0-33.3); Mean Corpuscular Volume 91.7 fL (83.0-100.0); Mean Platelet Volume 12.3 fL (9.4-12.4); Monocytes # 0.5 K/mcL (0.0-1.3); Monocytes % 8.6 %; Neutrophils # 2.8 K/mcL (1.6-8.9); Platelet Count 159 K/mcL (140-400); Red Blood Count 3.86 M/mcL (3.82-4.97); Red Cell Distribution Width 12.2 % (11.5-14.5); Segmented Neutrophils % 47.2 %
[2018-01-11 06:52] LABS: BUN/Creatinine Ratio 14 (6-26); Blood Urea Nitrogen 9 mg/dL (6-20); Calcium 8.8 mg/dL (8.6-10.3); Carbon Dioxide 27 mEq/L (23-29); Chloride 110 mEq/L (98-107); Glucose 112 mg/dL (70-105); Osmolality,Calculated 291 (280-300); Potassium 3.9 mEq/L (3.5-5.1); Sodium 141 mEq/L (136-145); eGFR For African Americans > 60 (> 60); eGFR For Non-African Americans > 60 (> 60)
[2018-01-11] MEDS: (Pentosan Polysulfate Sodium [Elmiron] 100 MG) PO SCH (07:27)
[2018-01-11] MEDS: Metoprolol XL (24 HR) Succ 50 MG TAB.ER.24H PO SCH (07:36)
[2018-01-11] MEDS: BuPROPion SR (12 HR) 150 MG TABLET PO SCH (07:37)
[2018-01-11] MEDS: Aspirin 325 MG TABLET PO SCH (07:39)
[2018-01-11] MEDS: Ibuprofen 800 MG TABLET PO PRN (09:23)
[2018-01-11 12:07] VITALS: BP 110/77
--- NOTE | 2018-01-11 13:35 | Discharge Summary ---
Date of Encounter: 01/11/18 Time of Encounter: 13:30 - Discharge Diagnosis (1) Acute left-sided weakness Priority: Primary Status: Acute (2) Diarrhea Priority: Secondary Status: Acute Qualifiers: Diarrhea type: unspecified type Qualified Code(s): R19.7 - Diarrhea, unspecified (3) HTN (hypertension) Priority: Secondary Status: Acute Qualifiers: Hypertension type: essential hypertension Qualified Code(s): I10 - Essential (primary) hypertension (4) Hypokalemia Priority: Secondary Status: Acute (5) DVT prophylaxis Priority: Secondary Status: Acute - Discharge Medications Prescriptions: Aspirin 325 mg PO DAILY #30 tablet Atorvastatin [Lipitor] 40 mg PO HS #30 tablet Home Medications: ALPRAZolam [Xanax 1 MG Tablet] 1 mg PO TID PRN 01/09/18 [History] BuPROPion SR (12 HR) [Wellbutrin SR] 150 mg PO BID 01/09/18 [History] Metoprolol Succinate [Toprol Xl] 100 mg PO DAILY 01/09/18 [History] Omeprazole [PriLOSEC] 20 mg PO DAILY 01/09/18 [History] Pentosan Polysulfate Sodium [Elmiron] 100 mg PO TID 01/09/18 [History] Aspirin 325 mg PO DAILY #30 tablet 01/11/18 [Rx] Atorvastatin [Lipitor] 40 mg PO HS #30 tablet 01/11/18 [Rx] Allergies/Adverse Reactions: 3 Allergy/AdvReac Type Severity Reaction Status Date / Time No Known Allergies Allergy Verified 05/13/17 15:25 Procedures/tests Complete & Pending: Procedures Performed prior 72 hours Category Date Time Status ECG 12 lead ECG [ECG] Routine Y 01/09/18 09:43 Completed Date of admission: 01/09/18 15:50 Primary care physician: Vinay Ferrell Jr, MD Discharging clinician: New Lede[place]ma - Patient Status Disposition: Home, Self-Care Condition: Fair Functional capacity at discharge: independent ambulation Overall status at discharge: patient is back to baseline - Discharge Instructions Follow Up With: Vinay Ferrell Jr, MD [Primary Care Provider] - 01/18/18 10:00 am Jillian Arevalo MD [Partnered Physician] - 01/18/18 12:45 pm Forms: Inpatient Work/School Release - Diet and Activity Activity: increase activity as tolerated Diet: advance to your usual diet Hospital course: Ms. Clrake is a 42 year old female with PMH of hypertension. She reports that little after 9 and returning began experiencing generalized weakness as well as weakness on the left side of her body and numbness and tingling. She reports that while in the restroom she began to feel flush and weak and diaphoretic. She attempted to walk to get help but she was too weak to ambulate so she safely lowered herself to the ground and called for help. Her last known well was 0900. She denies any prior history of CVA or TIA. Denies any fever, chills , chest pain, shortness of breath or unilateral extremity pain or swelling. She admits to dizziness, numbness and tingling over her entire body, slurred speech, generalized weakness as well as weakness to left upper and lower extremity. Stroke alert was called for patient and telestroke done from [facility]. Impression was "Glabal weakness less suggestive of stroke however, left sided dysmetria could be consistent with a posterior stroke and she should complete evaluation. Discussed possible tPA with family but given low NIHSS, resolving symptoms, and more global deficit presentation they agreed with pursuing further diagnostics without tpa." A CT was done that showed some concern for left occipital lobe ischemia, however an MRI was negative. Neurology was consulted and based on evaluation again seems this was less likely stroke related, more likely weakness and dehydration. She had echocardiogram and carotid ultraounds that were unremarkable. Patient was symptom free after IV fluids given. She was hypotensive and clonidine was held on discharge. She was instructed to follow- up with primary care physician in 2-3 days for blood pressure medication changes. Though this seems less likely stroke, we have helped set up a follow- up appointment with Neurology for close follow-up of symptoms. - Time Spent with Patient Total time spent providing and/or coordinating discharge services: - Constitutional Vitals: Temp Pulse Resp BP Pulse Ox 98.0 F 87 16 110/77 98 01/11/18 07:30 01/11/18 12:06 01/11/18 12:06 01/11/18 12:06 01/11/18 12:06 General appearance: Present: cooperative, A&O X 3, no acute distress, answers questions appropriately - Head Head exam: Present: atraumatic, normocephalic - Eye Eye exam: Present: PERRL, conjuntiva pink, sclera anicteric Pupils: Present: PERRL - Neck Neck exam general surgery: Present: supple, trachea midline. Absent: lymphadenopathy - Respiratory Respiratory exam: Present: CTAB. Absent: accessory muscle use, rales, rhonchi, wheezes - Cardiovascular Cardiovascular exam: Present: RRR, +S1, +S2. Absent: diastolic murmur, gallop, rubs, systolic murmur - GI/Abdominal GI/Abdominal exam: Present: normal bowel sounds, soft, no peritoneal signs. Absent: distended, tenderness - Extremities Exam Extremities exam: Present: warm, radial pulses palpable and symmetrical. Absent : calf tenderness, cyanotic, pedal edema - Neurological Exam Neurological exam: Present: CN II-XII intact, oriented X3, no focal deficits. Absent: pronater drift, facial droop, speech deficit - Skin Skin exam: Present: dry, intact
[2018-01-11] MEDS: ALPRAZolam 0.5 MG TABLET PO PRN (14:07)
== END 2018-01-11 15:07 | disposition home or self-care (01) ==
LOC: EMEROO 09:37 → 2SOUTHHOLD 09:37
PROVIDERS: ADMIT Student in an Organized Health Care Education/Training Program; ATTEND Registered Nurse

== ENCOUNTER 2018-01-16 16:56 | Inpatient (IN) ==
--- NOTE | 2018-01-16 17:32 | Emergency Department Note ---
Disposition Clinical Impression: Suicidal ideation Depression Qualifiers: Depression Type: unspecified Qualified Code(s): F32.9 - Major depressive disorder, single episode, unspecified Disposition: Still a Patient Condition: Fair Referrals: NONE,PCP [Primary Care Provider] - Time of Disposition: 19:10 Psych HPI - General Chief Complaint: ED Psychiatric Symptoms Stated Complaint: SI Time Seen by Provider: 01/16/18 17:24 Source: patient Mode of arrival: ambulatory Limitations: no limitations Nursing Notes Reviewed: Yes Vital Signs Reviewed: Yes - History of Present Illness HPI Narrative: 42-year-old female resents complaining of suicidal ideations, patient states that she was short out of her therapy sent aguilar that it was canceled, patient's had a history of depression she is on venlafaxine, Ativan, bupropion, this is not been helping her symptoms. She is a previous suicide attempt of hanging when she was a teenager. She is having thoughts but no clear plan. But she feels very emotionally distressed, she is upset at the previous of her father she fell she was responsible for. She said worsening bouts of stress and anxiety, she states that she feels that she is a threat for self-harm and suicide at this time. 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 Duration: intermittent, getting worse History of similar episodes: Yes Improves with: none Worsens with: none, drug use Alleged intoxication: No Associated Psychiatric Symptoms: depression, suicidal ideation Self harm or harm to others: admits thoughts of self harm - Related Data Home Medications Medication Instructions Recorded Confirmed ALPRAZolam [Xanax 1 MG Tablet] 1 mg PO TID PRN 01/09/18 01/09/18 BuPROPion SR (12 HR) [Wellbutrin 150 mg PO BID 01/09/18 01/09/18 SR] Metoprolol Succinate [Toprol Xl] 100 mg PO DAILY 01/09/18 01/09/18 Omeprazole [PriLOSEC] 20 mg PO DAILY 01/09/18 01/09/18 Pentosan Polysulfate Sodium 100 mg PO TID 01/09/18 01/09/18 [Elmiron] Previous Rx's Medication Instructions Recorded Aspirin 325 mg PO DAILY #30 tablet 01/11/18 Atorvastatin [Lipitor] 40 mg PO HS #30 tablet 01/11/18 Allergies Allergy/AdvReac Type Severity Reaction Status Date / Time No Known Allergies Allergy Verified 01/16/18 17:03 All systems ED: reviewed and negative except as stated. Review of Systems: As Per HPI Constitutional: Denies: fever, chills Eyes: Denies: eye pain ENT ED: Denies: ear pain Cardiovascular: Denies: chest pain Respiratory: Denies: cough, dyspnea Gastrointestinal: Denies: abdominal pain, nausea Genitourinary: Denies: urgency Musculoskeletal: Denies: back pain Integumentary: Denies: rash Neurological: Denies: headache Psychiatric: Reports: as per HPI, anxiety, depression, suicidal thoughts. Denies: homicidal thoughts, auditory hallucinations Endocrine: Reports: fatigue Hematological/Lymphatic: Reports: easy bleeding Past Medical History - Past Medical History Attestation: Yes The following information was validated with the patient. Source: patient Medical history: Reports: hypertension, TIA Surgical history: Reports: non-contributory Psychiatric history: Reports: anxiety, depression - Social History Smoking Status: Current every day smoker Smokeless Tobacco Status: No Alcohol use: Reports: none Drug use: Reports: none Physical Exam Constitutional: Thin agitated female appears anxious. Eyes: PERRLA, sclera anicteric ENT & Mouth: MMM Neck: normal inspection, neck is supple Resp: CTA bilaterally, no resp distress CV: RRR, no m/g/r GI: normal inspection, soft, no guarding or rigidity Neuro: A&O3, CNII-XII grossly intact, BRADY Psych: Anxious, positive suicidal ideation, negative homicidal ideation, not responding to external stimuli Skin: on limited exam, skin intact with no rashes or lesions - General Limitations: no limitations General appearance: alert, in no apparent distress, anxious Course Course Narrative: 42-year-old female appears of major depressive disorder, she also has active suicidal ideation, plan is for medical clearance for one-day evaluation. - Reevaluation(s) Reevaluation #1: I did medically clear the patient, started on Macrobid, otherwise no abnormalities, the psychiatric nurse was called, care was signed out to Dr. Arnold and Dr. Wright for follow-up Time: 19:09 Vital Signs Temperature 98.0 F 01/16/18 17:00 Pulse Rate 126 01/16/18 17:00 Respiratory Rate 20 01/16/18 17:00 Blood Pressure 134/132 02/19/18 17:00 O2 Sat by Pulse Oximetry 98 01/16/18 17:00 Temperature 98.0 F 01/16/18 17:00 Pulse Rate 126 01/16/18 17:00 Respiratory Rate 20 01/16/18 17:00 Blood Pressure 134/132 01/16/18 17:00 O2 Sat by Pulse Oximetry 98 01/16/18 17:00 Oxygen Delivery Oxygen Delivery Room Air Psych - Lab Data Result diagrams: 01/16/18 17:31 01/16/18 17:31 Lab Results 01/16/18 01/16/18 01/16/18 Range/Units 17:31 17:31 17:47 WBC 9.0 D (4.3-11.1) K/mcL RBC 4.74 (3.82-4.97) M/mcL Hgb 14.2 D (11.5-15.4) g/dL Hct 43.2 (35.3-44.9) % MCV 91.1 (83.0-100.0) fL MCH 30.0 (28.0-33.3) pg MCHC 32.9 (31.6-35.5) g/dL RDW 12.0 (11.5-14.5) % Plt Count 217 (140-400) K/mcL MPV 12.2 (9.4-12.4) fL Immature Gran % 0.3 (0-4) % Seg Neutrophils % 57.8 % Lymphocytes % 32.3 % Monocytes % 5.7 % Eosinophils % 3.3 % Basophils % 0.6 % Neutrophils # 5.2 (1.6-8.9) K/mcL Lymphocytes # 2.9 (0.6-4.6) K/mcL Monocytes # 0.5 (0.0-1.3) K/mcL Eosinophils # 0.3 (0.0-0.6) K/mcL Basophils # 0.1 (0.0-0.2) K/mcL Sodium 139 (136-145) mEq/L Potassium 3.8 (3.5-5.1) mEq/L Chloride 101 (98-107) mEq/L Carbon Dioxide 31 H (23-29) mEq/L BUN 10 (6-20) mg/dL Creatinine 0.76 (0.60-1.20) mg/dL Est GFR ( Amer) > 60 (> 60) Est GFR (Non-Af Amer) > 60 (> 60) BUN/Creatinine Ratio 13 (6-26) Glucose 90 (70-105) mg/dL Calculated Osmolality 287 (280-300) Calcium 10.1 (8.6-10.3) mg/dL Urine Color Yellow (Yellow) Urine Clarity Cloudy A (Clear) Urine pH 6.5 (5.0-8.0) pH Units Ur Specific [place] 1.015 (1.010-1.025) Urine Protein >=300 H (Neg-Trace) mg/dL Urine Glucose (UA) Normal (Normal) mg/dL Urine Ketones Negative (Negative) mg/dL Urine Blood Negative (Negative) Urine Nitrite Negative (Negative) Urine Bilirubin Negative (Negative) Urine Urobilinogen Normal (Normal) mg/dL Ur Leukocyte Esterase Small H (Negative) Urine Microscopic RBC 5-15 H (0-3) per hpf Urine Microscopic WBC 30-50 H (0-3) per hpf Ur Squamous Epith Cells Many H (None-Few) per lpf Urine Bacteria Moderate H (None-Few) per hpf Hyaline Casts None Seen (None-Few) per lpf Ur Culture Indicated? NO. (NO) Salicylates < 5.0 L (15.0-30.0) mg/dL Urine Opiates Screen (Uuuszt=598) ng/mL Acetaminophen < 1.0 L (10-30) mcg/mL Ur Barbiturates Screen (Wcbsto=936) ng/mL Ur Phencyclidine Scrn (Cutoff=25) ng/mL Ur Amphetamines Screen (Tyaeon=6038) ng/mL U Benzodiazepines Scrn (Iqbhip=059) ng/mL Urine Cocaine Screen (Cutoff= 300) ng/mL U Marijuana (THC) Screen (Cutoff = 50) ng/mL Ethyl Alcohol < 10 (0-10) mg/dL 01/16/18 Range/Units 17:47 WBC (4.3-11.1) K/mcL RBC (3.82-4.97) M/mcL Hgb (11.5-15.4) g/dL Hct (35.3-44.9) % MCV (83.0-100.0) fL MCH (28.0-33.3) pg MCHC (31.6-35.5) g/dL RDW (11.5-14.5) % Plt Count (140-400) K/mcL MPV (9.4-12.4) fL Immature Gran % (0-4) % Seg Neutrophils % % Lymphocytes % % Monocytes % % Eosinophils % % Basophils % % Neutrophils # (1.6-8.9) K/mcL Lymphocytes # (0.6-4.6) K/mcL Monocytes # (0.0-1.3) K/mcL Eosinophils # (0.0-0.6) K/mcL Basophils # (0.0-0.2) K/mcL Sodium (136-145) mEq/L Potassium (3.5-5.1) mEq/L Chloride (98-107) mEq/L Carbon Dioxide (23-29) mEq/L BUN (6-20) mg/dL Creatinine (0.60-1.20) mg/dL Est GFR ( Amer) (> 60) Est GFR (Non-Af Amer) (> 60) BUN/Creatinine Ratio (6-26) Glucose (70-105) mg/dL Calculated Osmolality (280-300) Calcium (8.6-10.3) mg/dL Urine Color (Yellow) Urine Clarity (Clear) Urine pH (5.0-8.0) pH Units Ur Specific [place] (1.010-1.025) Urine Protein (Neg-Trace) mg/dL Urine Glucose (UA) (Normal) mg/dL Urine Ketones (Negative) mg/dL Urine Blood (Negative) Urine Nitrite (Negative) Urine Bilirubin (Negative) Urine Urobilinogen (Normal) mg/dL Ur Leukocyte Esterase (Negative) Urine Microscopic RBC (0-3) per hpf Urine Microscopic WBC (0-3) per hpf Ur Squamous Epith Cells (None-Few) per lpf Urine Bacteria (None-Few) per hpf Hyaline Casts (None-Few) per lpf Ur Culture Indicated? (NO) Salicylates (15.0-30.0) mg/dL Urine Opiates Screen Negative (Fbommd=752) ng/mL Acetaminophen (10-30) mcg/mL Ur Barbiturates Screen Negative (Dbedvu=012) ng/mL Ur Phencyclidine Scrn Negative (Cutoff=25) ng/mL Ur Amphetamines Screen Negative (Cezbmn=5587) ng/mL U Benzodiazepines Scrn Positive H (Mfqcfj=303) ng/mL Urine Cocaine Screen Negative (Cutoff= 300) ng/mL U Marijuana (THC) Screen Negative (Cutoff = 50) ng/mL Ethyl Alcohol (0-10) mg/dL Psychiatric Medical Clearance - Medical Clearance Checklist Does the patient have a NEW psychiatric condition?: Yes Any abnormalities indicating possible medical illness?: No Any history of medical issues?: No Medical History: CVA (cerebral vascular accident) (Acute) HTN (hypertension) (Acute) Acute left-sided weakness (Acute) Diarrhea (Acute) DVT prophylaxis (Acute) Hypokalemia (Acute) Hypercalcemia (Acute) Transient neurologic deficit (Acute) Pre-syncope (Acute) Cerebellar stroke (Acute) Chest pain (Inactive) Dizziness (Inactive) Epistaxis (Inactive) History of recent stressful life event (Inactive) Hypertension (Inactive) Lack of adequate sleep (Inactive) Lumbar radiculopathy (Inactive) Lumbosacral strain (Inactive) Sciatica (Inactive) Sciatica associated with disorder of lumbosacral spine (Inactive) Sleep deprivation (Inactive) Urinary problem (Inactive) No Social History Section defined Any abnormal vital signs prior to transfer?: No Current Vitals: Last Vital Signs Temp 98.0 F 01/16/18 17:00 Pulse 126 01/16/18 17:00 Resp 20 01/16/18 17:00 BP 134/132 01/16/18 17:00 Pulse Ox 98 01/16/18 17:00 Is the patient intoxicated or cognitively impaired?: No Psychiatric Lab Panel: Drug Levels and Toxicity 01/16/18 01/16/18 17:31 17:47 Urine Opiates Screen Negative Acetaminophen < 1.0 L Ur Barbiturates Screen Negative Ur Phencyclidine Scrn Negative Ur Amphetamines Screen Negative U Benzodiazepines Scrn Positive H Urine Cocaine Screen Negative U Marijuana (THC) Screen Negative Ethyl Alcohol < 10 Any abnormalities on the physical exam?: No Any abnormal labs?: No Abnormal Labs: Abnormal lab results Carbon Dioxide 31 mEq/L (23-29) H 01/16/18 17:31 Urine Clarity Cloudy (Clear) A 01/16/18 17:47 Urine Protein >=300 mg/dL (Neg-Trace) H 01/16/18 17:47 Ur Leukocyte Esterase Small (Negative) H 01/16/18 17:47 Urine Microscopic RBC 5-15 per hpf (0-3) H 01/16/18 17:47 Urine Microscopic WBC 30-50 per hpf (0-3) H 01/16/18 17:47 Ur Squamous Epith Cells Many per lpf (None-Few) H 18 17:47 Urine Bacteria Moderate per hpf (None-Few) H 18 17:47 Salicylates < 5.0 mg/dL (15.0-30.0) L 01/16/18 17:31 Acetaminophen < 1.0 mcg/mL (10-30) L 01/16/18 17:31 U Benzodiazepines Scrn Positive ng/mL (Qanuvf=588) H 01/16/18 17:47 Does the patient require durable medical equiptment?: No Is the patient ambulatory?: Yes Is the patient a fall risk?: No Has the patient been medically cleared?: Yes Any acute medical condition require Tx prior to transfer?: No Statement of Medical Clearance: I have evaluated the patient, reviewed diagnostic information, and certify that the patient's medical condition is sufficiently stable that transfer to the psychiatric unit does not pose a significant risk of deterioration. S.B.A.R. - S.B.A.RToni Transition of Care: Pending 1A Situation: Demographics, MOA Background: Presenting Complaint, Relevant PMH, Meds, & Allergies Recommendation: Barrier(s) to disposition, Recommendation based on pending studies, treatments, or consults S.B.A.R. Report Given to: Catalina Tello Repor Time: 19:10 Attestation Statement - Attestation Attestation: I, Dexter Wright, examined this patient and my medical decision-making was reviewed with the [facility] ROOM ATTENDANT/PA/Advanced Practice Nurse/Resident Physician. I agree with the documented findings, disposition and treatment plan as described except to the extent set forth below. 42-year-old female presents emergency Department with concerns of suicidal ideation. Patient states she has had passive thoughts of suicide however she has not attempted in the past few days. She has a history of previous suicide attempt by hanging and she is a habitual cutter. Patient states that she is stressed secondary to poor health of her grandmother as well as a recent medical stressors. She has no current complaints in the emergency department. She will be medically cleared and will be evaluated by behavioral health.
[2018-01-16 17:44] LABS: Basophils # 0.1 K/mcL (0.0-0.2); Basophils % 0.6 %; Eosinophils # 0.3 K/mcL (0.0-0.6); Eosinophils % 3.3 %; Hematocrit 43.2 % (35.3-44.9); Immature Granulocytes % 0.3 % (0-4); Lymphocytes # 2.9 K/mcL (0.6-4.6); Lymphocytes % 32.3 %; Mean Corpuscular HGB Conc 32.9 g/dL (31.6-35.5); Mean Corpuscular Volume 91.1 fL (83.0-100.0); Mean Platelet Volume 12.2 fL (9.4-12.4); Monocytes # 0.5 K/mcL (0.0-1.3); Monocytes % 5.7 %; Neutrophils # 5.2 K/mcL (1.6-8.9); Platelet Count 217 K/mcL (140-400); Red Blood Count 4.74 M/mcL (3.82-4.97); Segmented Neutrophils % 57.8 %
[2018-01-16 17:47] LABS: Hemoglobin 14.2 g/dL (11.5-15.4)
[2018-01-16 17:56] LABS: BUN/Creatinine Ratio 13 (6-26); Blood Urea Nitrogen 10 mg/dL (6-20); Calcium 10.1 mg/dL (8.6-10.3); Carbon Dioxide 31 mEq/L (23-29); Chloride 101 mEq/L (98-107); Glucose 90 mg/dL (70-105); Osmolality,Calculated 287 (280-300); Potassium 3.8 mEq/L (3.5-5.1); Sodium 139 mEq/L (136-145); eGFR For African Americans > 60 (> 60); eGFR For Non-African Americans > 60 (> 60)
[2018-01-16 18:03] LABS: Bilirubin,Urine Negative (Negative); Blood,Urine Negative (Negative); Clarity,Urine Cloudy (Clear); Color,Urine Yellow (Yellow); Glucose,Urine (UA) Normal (Normal); Ketones,Urine Negative (Negative); Leukocyte Esterase,Urine Small (Negative); Nitrite,Urine Negative (Negative); PH,Urine 6.5 pH Units (5.0-8.0); Protein,Urine >=300 mg/dL (Neg-Trace); Specific Gravity,Urine 1.015 (1.010-1.025); Urobilinogen,Urine Normal (Normal)
[2018-01-16 18:07] LABS: Bacteria,Urine Moderate per hpf (None-Few); Hyaline Casts,Urine None Seen per lpf (None-Few); Squamous Epithelial Cell,Urine Many per lpf (None-Few); WBC,Urine 30-50 per hpf (0-3)
[2018-01-16 18:13] LABS: Acetaminophen < 1.0 mcg/mL (10-30); Ethanol < 10 mg/dL (0-10); Salicylate < 5.0 mg/dL (15.0-30.0)
[2018-01-16 18:16] LABS: Amphetamine Screen,Urine Negative ng/mL (Cutoff=1000); Barbiturate Screen,Urine Negative ng/mL (Cutoff=200); Benzodiazepines Screen,Urine Positive ng/mL (Cutoff=200); Cannabinoid Screen,Urine Negative ng/mL (Cutoff = 50); Cocaine Screen,Urine Negative ng/mL (Cutoff= 300); Opiate Screen,Urine Negative ng/mL (Cutoff=300); Phencyclidine Screen,Urine Negative ng/mL (Cutoff=25)
[2018-01-16] MEDS ORDERED: Ibuprofen 600 MG TABLET PO ONE (18:29)
[2018-01-16] MEDS ORDERED: Nitrofurantoin (BID) 100 MG CAPSULE PO STA (19:07)
--- NOTE | 2018-01-16 19:37 | Emergency Department Note ---
START Narrative - START START: I examined this patient and my medical decision-making was reviewed with the Resident Physician. I agree with the documented findings, disposition and treatment plan as described except to the extent set forth below. accepted sign out from Dr. Wright and 1A has been consulted. We will wait for their reccomendations and follow accordingly.
[2018-01-16] MEDS ORDERED: ALPRAZolam 0.5 MG TABLET PO STA (19:52)
[2018-01-16] MEDS ORDERED: *HR* LORazepam 1 MG TABLET PO ONE (19:53)
[2018-01-16] MEDS ORDERED: Haloperidol Lactate 5 MG/ML VIAL IM PRN (21:29)
[2018-01-16] MEDS ORDERED: *HR* LORazepam 2 MG/ML VIAL IM PRN (21:29)
[2018-01-16] MEDS ORDERED: Mag Hydrox/Al Hydrox/Simeth 30 ML UDC PO PRN (21:29)
[2018-01-16] MEDS ORDERED: *HR* LORazepam 1 MG TABLET PO PRN (21:29)
[2018-01-16] MEDS ORDERED: MOM Conc 10 ML UD.LIQ PO PRN (21:29)
[2018-01-16] MEDS: traZODone 50 MG TABLET PO PRN (23:38)
[2018-01-16] MEDS: hydrOXYzine pamoate 25 MG CAPSULE PO PRN (23:38)
[2018-01-17] MEDS ORDERED: Nitrofurantoin (BID) 100 MG CAPSULE PO SCH (08:00)
[2018-01-17] MEDS ORDERED: ALPRAZolam 1 MG TABLET PO PRN (08:53)
[2018-01-17] MEDS ORDERED: Venlafaxine XR (24 HR) 75 MG CAP.ER.24H PO SCH (09:00)
[2018-01-17] MEDS: hydroCHLOROthiazide 25 MG TABLET PO SCH (09:31)
[2018-01-17] MEDS: cloNIDine HCl 0.1 MG TABLET PO SCH ×2 (09:32→21:52)
[2018-01-17] MEDS: Nicotine 21 MG PATCH.TD24 TD SCH (09:32)
[2018-01-17] MEDS: BuPROPion SR (12 HR) 150 MG TABLET PO SCH (09:32)
[2018-01-17] MEDS: Aspirin Enteric Coated 81 MG Tablet PO SCH (09:32)
[2018-01-17] MEDS: Metoprolol XL (24 HR) Succ 50 MG TAB.ER.24H PO SCH (09:32)
[2018-01-17] MEDS: (Pentosan Polysulfate Sodium [Elmiron] 100 MG) PO SCH ×3 (09:39→22:59)
[2018-01-17] MEDS: Ibuprofen 400 MG TABLET PO PRN ×2 (12:37→21:58)
--- NOTE | 2018-01-17 13:28 | Psychiatry History & Physical ---
Date of Encounter: 01/17/18 Time of Encounter: 13:21 History of Present Illness Patient Stated Chief Complaint: suicidal ideation Medicare Admission Attestation: For traditional Medicare patients the provided hospital inpatient services are reasonable and necessary and in the case of services not specified as inpatient -only under 42 CFR 419.22 (n), that they are appropriately provided as inpatient services in accordance 42 CFR 412.3. For Critical Access Hospital the patient may reasonably be expected to be discharged or transferred to a hospital within 96 hours after admission to the Critical Access Hospital. Admitted From: Home Plans for Post Hospital Care: Home History of Present Illness: Ms. Clarke is a 42 year old female who presented to the ER with SI. Earlier in the day she presented for an intake appointment at [facility] only to find out her appointment had been canceled and she had missed getting the message. Client states she has a long history of depression and anxiety going back to her childhood years. Cutting behaviors and a suicide attempt as a teenager but nothing since. Currently takes meds from her PCP including Effexor , Wellbutrin, and Xanax. Supportive family but client is feeling overwhelmed with caring for others and not herself. Also has chronically high blood pressure and just had a TIA three days ago. 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 Discussed medication options. Client is willing to switch from Xanax to Klonopin. No substance abuse issues and client would likely benefit from something longer acting. Also discussed switching from Effexor to Cymbalta since Effexor is known to increase blood pressure. Explained potential for withdrawal syndrome with Effexor but hopefully replacing it with Cymbalta will avoid this. Client is open to therapy and referrals will be made. Past Med Surg Social Fam HX - Past Medical History Medical history: hypertension, TIA - Past Psychiatric History Psychiatric history: Reports: anxiety, depression, prior suicide attempt Family psychiatric history: Yes Family Psychiatric History Details: father Family History of Suicide: Unknown - Past Surgical History Surgical History: non-contributory - Social History Smoking Status: Current every day smoker Smokeless Tobacco Status: No Alcohol use: none Drug use: none - Family History Father Living Status: Medications & Allergies ALPRAZolam [Xanax 1 MG Tablet] 1 mg PO TID PRN 01/09/18 [History] BuPROPion SR (12 HR) [Wellbutrin SR] 150 mg PO DAILY 01/09/18 [History] Metoprolol Succinate [Toprol Xl] 150 mg PO DAILY 01/09/18 [History] Omeprazole [PriLOSEC] 20 mg PO DAILY 01/09/18 [History] Pentosan Polysulfate Sodium [Elmiron] 100 mg PO TID 01/09/18 [History] Aspirin Enteric Coated [Aspirin EC] 81 mg PO DAILY 01/16/18 [History] Simvastatin [Zocor] 40 mg PO HS 01/16/18 [History] Venlafaxine XR (24 HR) [Effexor XR] 225 mg PO DAILY 01/16/18 [History] cloNIDine HCl [CloNIDine HCl] 0.1 mg PO BID 01/16/18 [History] hydroCHLOROthiazide [Hydrochlorothiazide] 12.5 mg PO DAILY 01/16/18 [History] 3 Allergy/AdvReac Type Severity Reaction Status Date / Time No Known Allergies Allergy Verified 01/16/18 17:03 Review of Systems Constitutional: Denies: fever, chills, weakness, weight change Eyes: Denies: eye pain, vision change Ears, Nose, Throat: Denies: ear pain, throat pain, dental pain, hearing loss, congestion Cardiovascular: Denies: chest pain, palpitations, dyspnea on exertion Respiratory: Denies: cough, dyspnea, wheezes Gastrointestinal: Denies: abdominal pain, nausea, vomiting, diarrhea, constipation Genitourinary male: Denies: urgency, dysuria, frequency, genital lesions Genitourinary female: Denies: urgency, dysuria, frequency, abnormal menses, dyspareunia Musculoskeletal: Denies: joint swelling, joint pain Integumentary: Denies: rash, lesions, pruritus Neurological: Denies: headache, weakness, numbness, memory loss Endocrine: Denies: fatigue, heat or cold intolerance Hematologic/Lymphatic: Denies: easy bruising, lymphadenopathy Allergic/Immunologic: Denies: urticaria, itchy eyes Mental Status Exam Patient orientation: Yes Person, Yes Time, Yes Place Level of alertness: Alert Patient appearance: Appropriate, Well Groomed Behavior: calm, cooperative Psychomotor activity: Normal Eye contact: Maintains Eye Contact Mood description: Depressed Affect description: congruent with mood Speech pattern: Normal rate, Normal rhythm, Normal tone Speech volume: Normal Thought process: Linear Thought content: Yes Suicidal ideation, No Homicidal ideation, No Overt delusions Perceptual disturbances: No Auditory hallucinations, No Visual hallucinations Attention span: Capable of Focused Attention Memory description: Grossly Intact Patient reliability: Reliable Historian Intelligence estimate: Average Judgment: Fair Insight: Partial Exam - HEENT Head exam IM: Present: atraumatic Eye exam IM: Present: EOMI ENT exam IM: Present: mucous membranes moist - Neurological Neurological exam IM: Present: alert, oriented X3 - Respiratory Respiratory exam IM: Present: CTAB - GI/Abdominal GI/Abdominal exam IM: Present: normal bowel sounds - Extremities Extremities exam IM: Present: full ROM - Skin Skin exam IM: Present: normal color Results - Vital Signs Vital signs: Temp Pulse Resp BP Pulse Ox 97.9 F 107 16 146/116 98 01/17/18 09:00 01/17/18 09:00 01/17/18 09:00 01/17/18 09:00 01/16/18 17:00 - Labs Labs: Laboratory Last Values WBC 9.0 K/mcL (4.3-11.1) D 01/16/18 17:31 RBC 4.74 M/mcL (3.82-4.97) 01/16/18 17:31 Hgb 14.2 g/dL (11.5-15.4) D 01/16/18 17:31 Hct 43.2 % (35.3-44.9) 01/16/18 17:31 MCV 91.1 fL (83.0-100.0) 01/16/18 17:31 MCH 30.0 pg (28.0-33.3) 01/16/18 17:31 MCHC 32.9 g/dL (31.6-35.5) 01/16/18 17:31 RDW 12.0 % (11.5-14.5) 01/16/18 17:31 Plt Count 217 K/mcL (140-400) 01/16/18 17:31 MPV 12.2 fL (9.4-12.4) 01/16/18 17:31 Immature Gran % 0.3 % (0-4) 01/16/18 17:31 Seg Neutrophils % 57.8 % 01/16/18 17:31 Lymphocytes % 32.3 % 01/16/18 17:31 Monocytes % 5.7 % 02/19/18 17:31 Eosinophils % 3.3 % 01/16/18 17:31 Basophils % 0.6 % 01/16/18 17:31 Neutrophils # 5.2 K/mcL (1.6-8.9) 01/16/18 17:31 Lymphocytes # 2.9 K/mcL (0.6-4.6) 01/16/18 17:31 Monocytes # 0.5 K/mcL (0.0-1.3) 01/16/18 17:31 Eosinophils # 0.3 K/mcL (0.0-0.6) 01/16/18 17:31 Basophils # 0.1 K/mcL (0.0-0.2) 01/16/18 17:31 Sodium 139 mEq/L (136-145) 01/16/18 17:31 Potassium 3.8 mEq/L (3.5-5.1) 01/16/18 17:31 Chloride 101 mEq/L (98-107) 01/16/18 17:31 Carbon Dioxide 31 mEq/L (23-29) H 01/16/18 17:31 BUN 10 mg/dL (6-20) 01/16/18 17:31 Creatinine 0.76 mg/dL (0.60-1.20) 01/16/18 17:31 Est GFR ( Amer) > 60 (> 60) 01/16/18 17:31 Est GFR (Non-Af Amer) > 60 (> 60) 01/16/18 17:31 BUN/Creatinine Ratio 13 (6-26) 01/16/18 17:31 Glucose 90 mg/dL (70-105) 01/16/18 17:31 Calculated Osmolality 287 (280-300) 01/16/18 17:31 Calcium 10.1 mg/dL (8.6-10.3) 01/16/18 17:31 Urine Color Yellow (Yellow) 01/16/18 17:47 Urine Clarity Cloudy (Clear) A 01/16/18 17:47 Urine pH 6.5 pH Units (5.0-8.0) 01/16/18 17:47 Ur Specific [place] 1.015 (1.010-1.025) 01/16/18 17:47 Urine Protein >=300 mg/dL (Neg-Trace) H 01/16/18 17:47 Urine Glucose (UA) Normal mg/dL (Normal) 01/16/18 17:47 Urine Ketones Negative mg/dL (Negative) 01/16/18 17:47 Urine Blood Negative (Negative) 01/16/18 17:47 Urine Nitrite Negative (Negative) 01/16/18 17:47 Urine Bilirubin Negative (Negative) 01/16/18 17:47 Urine Urobilinogen Normal mg/dL (Normal) 01/16/18 17:47 Ur Leukocyte Esterase Small (Negative) H 01/16/18 17:47 Urine Microscopic RBC 5-15 per hpf (0-3) H 01/16/18 17:47 Urine Microscopic WBC 30-50 per hpf (0-3) H 01/16/18 17:47 Ur Squamous Epith Cells Many per lpf (None-Few) H 01/16/18 17:47 Urine Bacteria Moderate per hpf (None-Few) H 01/16/18 17:47 Hyaline Casts None Seen per lpf (None-Few) 01/16/18 17:47 Ur Culture Indicated? NO. (NO) 01/16/18 17:47 Salicylates < 5.0 mg/dL (15.0-30.0) L 01/16/18 17:31 Urine Opiates Screen Negative ng/mL (Jvllhp=862) 01/16/18 17:47 Acetaminophen < 1.0 mcg/mL (10-30) L 01/16/18 17:31 Ur Barbiturates Screen Negative ng/mL (Lsceah=120) 01/16/18 17:47 Ur Phencyclidine Scrn Negative ng/mL (Cutoff=25) 01/16/18 17:47 Ur Amphetamines Screen Negative ng/mL (Ytzufv=6915) 01/16/18 17:47 U Benzodiazepines Scrn Positive ng/mL (Asfydy=546) H 01/16/18 17:47 Urine Cocaine Screen Negative ng/mL (Cutoff= 300) 01/16/18 17:47 U Marijuana (THC) Screen Negative ng/mL (Cutoff = 50) 01/16/18 17:47 Ethyl Alcohol < 10 mg/dL (0-10) 01/16/18 17:31 Assessment and Plan (1) Major depress dis, severe Current visit: Yes Status: Acute Plan: Admit inpatient for safety and stabilization, Close observation, Suicide Precautions per unit protocol, Encourage participation in unit milieu, Group Therapy, Monitor sleep, Monitor appetite Risks, benefits, side effects, alternatives discussed w/pt: Yes Patient agreeable to treatment: Yes Plans for Post Hospital Care: Home Estimated Length of Stay (Days): 4
[2018-01-17] MEDS: clonazePAM 0.5 MG TABLET PO SCH (21:52)
[2018-01-18] MEDS: BuPROPion SR (12 HR) 150 MG TABLET PO SCH (09:07)
[2018-01-18] MEDS: Aspirin Enteric Coated 81 MG Tablet PO SCH (09:07)
[2018-01-18] MEDS: hydroCHLOROthiazide 25 MG TABLET PO SCH (09:07)
[2018-01-18] MEDS: (Pentosan Polysulfate Sodium [Elmiron] 100 MG) PO SCH ×2 (09:08→15:08)
[2018-01-18] MEDS: clonazePAM 0.5 MG TABLET PO SCH (09:08)
[2018-01-18] MEDS: Nicotine 21 MG PATCH.TD24 TD SCH (09:08)
[2018-01-18] MEDS: Metoprolol XL (24 HR) Succ 50 MG TAB.ER.24H PO SCH (09:08)
[2018-01-18] MEDS: cloNIDine HCl 0.1 MG TABLET PO SCH ×2 (09:08→21:14)
[2018-01-18] MEDS: hydrOXYzine pamoate 25 MG CAPSULE PO PRN (13:25)
--- NOTE | 2018-01-18 13:29 | Psychiatry Progress Note ---
Date of Encounter: 01/18/18 Time of Encounter: 13:25 Subjective Interval history: Client is tolerating the medication changes. Still experiencing some SI but noticing small improvements. Anxiety level is still heightened and she recognizes she is not getting immediate relief from the Klonopin like she did the Xanax. Discussed increasing meds today since she is tolerating both of them. She did ask for something to help with breakthrough anxiety and Vistaril was discussed as an option. Family supportive. New appointments have been scheduled for her for Tuesday. If she is feeling up to it will plan to discharge her at the end of the week so that she can follow up as an outpatient Tuesday after having had a transitional weekend at home. Review of Systems Constitutional: Denies: fever, chills, weakness, weight change Eyes: Denies: eye pain, vision change Ears, Nose, Throat: Denies: ear pain, throat pain, dental pain, hearing loss, congestion Cardiovascular: Denies: chest pain, palpitations, dyspnea on exertion Respiratory: Denies: cough, dyspnea, wheezes Gastrointestinal: Denies: abdominal pain, nausea, vomiting, diarrhea, constipation Musculoskeletal: Denies: joint swelling, joint pain Neurological: Denies: headache, weakness, numbness, memory loss Objective: Exam Patient orientation: Yes Person, Yes Time, Yes Place Level of alertness: Alert Patient appearance: Appropriate, Well Groomed Behavior: calm, cooperative Psychomotor activity: Normal Eye contact: Maintains Eye Contact Mood description: Depressed, Anxious Affect description: congruent with mood Speech pattern: Normal rate, Normal rhythm, Normal tone Speech volume: Normal Thought process: Linear Thought content: Yes Suicidal ideation, No Homicidal ideation, No Overt delusions Perceptual disturbances: No Auditory hallucinations, No Visual hallucinations Judgment: Fair Insight: Partial Results - Vital Signs Vital Signs: Temp Pulse Resp BP Pulse Ox 98.6 F 78 16 114/86 98 01/18/18 09:00 01/18/18 09:00 01/18/18 09:00 01/18/18 09:00 01/16/18 17:00 Assessment and Plan (1) Major depress dis, severe Current visit: Yes Status: Acute Plan: Continue hospitalization, Close observation, Suicide Precautions per unit protocol, Encourage participation in unit milieu, Group Therapy, Monitor sleep, Monitor appetite Risks, benefits, side effects, alternatives discussed w/pt: Yes Patient agreeable to treatment: Yes Consult Discharge Plan - Plan Referrals: [facility] [Outside] - 02/15/18 1:00 pm (The above appointment is with Emily Chacon for outpatient mental health counselin services. You will also see Dr. Mendiola for outpatient psychiatric assessment and medication management services on 03/17/2018 at 2:00pm in the same office. Please arrive 10 minutes early to complete the check-in process. Please bring your insurance card (or [employer] award letter) and photo ID. If you are unable to keep this appointment, 24 hour business notice of cancellation is expected. If you miss your new patient appointment without providing appropriate notice, you cannot be re- scheduled. The above appointment(s) reflects first availability. You may contact the office regularly to check for cancellations that may allow you to be seen sooner. The [facility] is the 1st building behind [facility] in [place], [place]. Please do not use GPS or mapping apps to locate the office, as they will take you to the wrong location. ) Vinay Ferrell Jr, MD [Partnered Physician] - 01/23/18 1:00 pm (The above appointment is with Becka Christianson, Dr. Patiño nurse practitioner, for hospitalization and primary care follow up.) Jillian Arevalo MD [Partnered Physician] - 01/23/18 8:15 am (The above appointment is with Dr. Arevalo, neurologist, for hospitalization follow up.)
[2018-01-18] MEDS: clonazePAM 1 MG TABLET PO SCH (21:14)
[2018-01-18] MEDS: traZODone 50 MG TABLET PO PRN (21:15)
[2018-01-18] MEDS: Ibuprofen 400 MG TABLET PO PRN (21:18)
[2018-01-19] MEDS: (Pentosan Polysulfate Sodium [Elmiron] 100 MG) PO SCH ×3 (00:03→13:06)
[2018-01-19] MEDS: Metoprolol XL (24 HR) Succ 50 MG TAB.ER.24H PO SCH (09:48)
[2018-01-19] MEDS: Aspirin Enteric Coated 81 MG Tablet PO SCH (09:49)
[2018-01-19] MEDS: Nicotine 21 MG PATCH.TD24 TD SCH (09:49)
[2018-01-19] MEDS: cloNIDine HCl 0.1 MG TABLET PO SCH ×2 (09:49→21:57)
[2018-01-19] MEDS: hydroCHLOROthiazide 25 MG TABLET PO SCH (09:50)
[2018-01-19] MEDS: clonazePAM 0.5 MG TABLET PO SCH (09:51)
[2018-01-19] MEDS: BuPROPion SR (12 HR) 150 MG TABLET PO SCH (09:51)
[2018-01-19] MEDS: hydrOXYzine pamoate 25 MG CAPSULE PO PRN (13:10)
--- NOTE | 2018-01-19 16:36 | Psychiatry Progress Note ---
Date of Encounter: 01/19/18 Time of Encounter: 16:34 Subjective Interval history: Client reports she is starting to feel better. SI has lessened. Still feeling the urges to cut/self harm but realizing she has much to live for. Client did ask for a family meeting tomorrow morning to be facilitated by staff. She is open to the idea of discharge tomorrow if the family meeting goes well. Therapy will likely be a big component in her recovery once she is discharged. Review of Systems Constitutional: Denies: fever, chills, weakness, weight change Eyes: Denies: eye pain, vision change Ears, Nose, Throat: Denies: ear pain, throat pain, dental pain, hearing loss, congestion Cardiovascular: Denies: chest pain, palpitations, dyspnea on exertion Respiratory: Denies: cough, dyspnea, wheezes Gastrointestinal: Denies: abdominal pain, nausea, vomiting, diarrhea, constipation Musculoskeletal: Denies: joint swelling, joint pain Neurological: Denies: headache, weakness, numbness, memory loss Objective: Exam Patient orientation: Yes Person, Yes Time, Yes Place Level of alertness: Alert Patient appearance: Appropriate, Well Groomed Behavior: calm, cooperative Psychomotor activity: Normal Eye contact: Maintains Eye Contact Mood description: Depressed Affect description: full range Speech pattern: Normal rate, Normal rhythm, Normal tone Speech volume: Normal Thought process: Linear, Goal Oriented Thought content: Yes Suicidal ideation, No Homicidal ideation, No Overt delusions Perceptual disturbances: No Auditory hallucinations, No Visual hallucinations Judgment: Fair Insight: Partial Results - Vital Signs Vital Signs: Temp Pulse Resp BP Pulse Ox 98.6 F 73 16 110/82 98 01/19/18 09:00 01/19/18 09:00 01/19/18 09:00 01/19/18 09:00 01/16/18 17:00 Assessment and Plan (1) Major depress dis, severe Current visit: Yes Status: Acute Plan: Continue hospitalization, Close observation, Suicide Precautions per unit protocol, Encourage participation in unit milieu, Group Therapy, Monitor sleep, Monitor appetite Risks, benefits, side effects, alternatives discussed w/pt: Yes Patient agreeable to treatment: Yes Consult Discharge Plan - Plan Referrals: [facility] [Outside] - 02/15/18 1:00 pm (The above appointment is with Emily Chacon for outpatient mental health counselin services. You will also see Dr. Mendiola for outpatient psychiatric assessment and medication management services on 03/17/2018 at 2:00pm in the same office. Please arrive 10 minutes early to complete the check-in process. Please bring your insurance card (or [employer] award letter) and photo ID. If you are unable to keep this appointment, 24 hour business notice of cancellation is expected. If you miss your new patient appointment without providing appropriate notice, you cannot be re- scheduled. The above appointment(s) reflects first availability. You may contact the office regularly to check for cancellations that may allow you to be seen sooner. The [facility] is the [facility] in [place], [place]. Please do not use GPS or mapping apps to locate the office, as they will take you to the wrong location. ) Vinay Ferrell Jr, MD [Partnered Physician] - 01/23/18 1:00 pm (The above appointment is with Becka Christianson, Dr. Patiño nurse practitioner, for hospitalization and primary care follow up.) Jillian Arevalo MD [Partnered Physician] - 01/23/18 8:15 am (The above appointment is with Dr. Arevalo, neurologist, for hospitalization follow up.)
[2018-01-19] MEDS: Ibuprofen 400 MG TABLET PO PRN (17:19)
[2018-01-19] MEDS: traZODone 50 MG TABLET PO PRN (21:57)
[2018-01-19] MEDS: clonazePAM 1 MG TABLET PO SCH (21:57)
[2018-01-20] MEDS: (Pentosan Polysulfate Sodium [Elmiron] 100 MG) PO SCH ×3 (01:10→15:49)
[2018-01-20] MEDS: Aspirin Enteric Coated 81 MG Tablet PO SCH (09:59)
[2018-01-20] MEDS: cloNIDine HCl 0.1 MG TABLET PO SCH (09:59)
[2018-01-20] MEDS: clonazePAM 0.5 MG TABLET PO SCH (09:59)
[2018-01-20] MEDS: Metoprolol XL (24 HR) Succ 50 MG TAB.ER.24H PO SCH (09:59)
[2018-01-20] MEDS: hydroCHLOROthiazide 25 MG TABLET PO SCH (10:00)
[2018-01-20] MEDS: BuPROPion SR (12 HR) 150 MG TABLET PO SCH (10:00)
[2018-01-20] MEDS: Nicotine 21 MG PATCH.TD24 TD SCH (10:03)
[2018-01-20 10:43] VITALS: BP 120/85
--- NOTE | 2018-01-20 12:25 | Discharge Summary ---
Date of Encounter: 01/20/18 Time of Encounter: 12:21 Diagnosis - Discharge Diagnosis (1) Major depress dis, severe Status: Acute Medications - Discharge Medications Prescriptions: DULoxetine [Cymbalta] 60 mg PO DAILY #60 capsule. BuPROPion SR (12 HR) [Wellbutrin SR] 150 mg PO DAILY 01/09/18 [History] Metoprolol Succinate [Toprol Xl] 150 mg PO DAILY 01/09/18 [History] Omeprazole [PriLOSEC] 20 mg PO DAILY 01/09/18 [History] Pentosan Polysulfate Sodium [Elmiron] 100 mg PO TID 01/09/18 [History] Aspirin Enteric Coated [Aspirin EC] 81 mg PO DAILY 01/16/18 [History] Simvastatin [Zocor] 40 mg PO HS 01/16/18 [History] cloNIDine HCl [CloNIDine HCl] 0.1 mg PO BID 01/16/18 [History] hydroCHLOROthiazide [Hydrochlorothiazide] 12.5 mg PO DAILY 01/16/18 [History] DULoxetine [Cymbalta] 60 mg PO DAILY #60 capsule. 01/20/18 [Rx] 3 Allergy/AdvReac Type Severity Reaction Status Date / Time No Known Allergies Allergy Verified 01/16/18 17:03 Provider Date of admission: 01/16/18 21:20 Primary care physician: PCP NONE Discharging clinician: Rosa Elena Hernadez Assessment and Plan - Patient/Caregiver Discharge Instructions Activity: resume usual activities as tolerated Diet: regular diet - Follow up Plan Follow up with: [facility] [Outside] - 02/15/18 1:00 pm (The above appointment is with Emily Chacon for outpatient mental health counselin services. You will also see Dr. Mendiola for outpatient psychiatric assessment and medication management services on 03/17/2018 at 2:00pm in the same office. Please arrive 10 minutes early to complete the check-in process. Please bring your insurance card ([facility]) and photo ID. If you are unable to keep this appointment, 24 hour business notice of cancellation is expected. If you miss your new patient appointment without providing appropriate notice, you cannot be re- scheduled. The above appointment(s) reflects first availability. You may contact the office regularly to check for cancellations that may allow you to be seen sooner. The [facility] is the 1st building behind [facility] in [place], [place]. Please do not use GPS or mapping apps to locate the office, as they will take you to the wrong location. ) Vinay Ferrell Jr, MD [Partnered Physician] - 01/23/18 1:00 pm (The above appointment is with Becka Christianson, Dr. Patiño nurse practitioner, for hospitalization and primary care follow up.) Jillian Arevalo MD [Partnered Physician] - 01/23/18 8:15 am (The above appointment is with Dr. Arevalo, neurologist, for hospitalization follow up.) Functional capacity at discharge: independent ambulation Overall status at discharge: Stable Disposition: Home, Self-Care Hospital Course Hospital course: Ms. Clarke is a 42 year old female who was admitted secondary to SI and thoughts of cutting. She responded well to the inpatient environment. She attended groups. She journaled. She had staff facilitate a family meeting. She advocated for what she needed and she responded to treatment. Her Effexor and Xanax were discontinued for Cymbalta and Klonopin. She handled the med changes without issue. She was set up with outpatient providers and client seems motivated to follow through with treatment. and son are supportive and visited with client. They were here this morning for the family meeting and were fine with client saying she wants to attend groups today and will be back to pick her up for discharge later this afternoon. Client denies SI/HI/AH/VH. Thoughts of self harm/cutting have lessened. No self harm gestures on the unit. Client reports she feels ready to return to work next week. - Time Spent with Patient Total time spent providing and/or coordinating discharge services: Quality - Multiple Antipsychotics Patient discharged on 2 or more antipsychotic medications: No Procedures - Procedures Procedures: Medication Management, Crisis Stabilization, Supportive Therapy, Group Therapy Mental Status Exam - Mental Status Exam Patient orientation: Yes Person, Yes Time, Yes Place Level of alertness: Alert Patient appearance: Appropriate, Well Groomed Behavior: calm, cooperative Psychomotor activity: Normal Eye contact: Maintains Eye Contact Mood description: Anxious Affect description: congruent with mood Speech pattern: Normal rate, Normal rhythm, Normal tone Speech Volume: Normal Thought process: Linear, Goal Oriented Thought Content: No Suicidal ideation, No Homicidal ideation, No Overt delusions Perceptual Disturbances: No Auditory hallucinations, No Visual hallucinations Judgment: Fair Insight: Partial
[2018-01-20] MEDS: Ibuprofen 400 MG TABLET PO PRN (13:05)
[2018-01-20] MEDS: hydrOXYzine pamoate 25 MG CAPSULE PO PRN (13:05)
== END 2018-01-20 17:40 | disposition home or self-care (01) | DRG 881 ==
LOC: EMEROO 16:56 → 1ANU 21:20
PROVIDERS: ADMIT Psychiatry & Neurology Psychiatry; ATTEND Psychiatry & Neurology Psychiatry

== ENCOUNTER 2021-09-08 13:32 | Inpatient (IN) ==
[2021-09-08 14:11] LABS: Basophils # 0.1 K/mcL (0.0-0.2); Basophils % 0.5 %; Eosinophils # 0.2 K/mcL (0.0-0.6); Eosinophils % 1.6 %; Hemoglobin 16.5 g/dL (11.5-15.4); Immature Granulocytes % 0.3 % (0-4); Lymphocytes # 3.3 K/mcL (0.6-4.6); Lymphocytes % 29.3 %; Mean Corpuscular Hemoglobin 30.5 pg (28.0-33.3); Mean Corpuscular Volume 92.4 fL (83.0-100.0); Mean Platelet Volume 11.5 fL (9.4-12.4); Monocytes # 0.7 K/mcL (0.0-1.3); Monocytes % 6.3 %; Platelet Count 289 K/mcL (140-400); Red Blood Count 5.41 M/mcL (3.82-4.97); White Blood Count 11.3 K/mcL (4.3-11.1)
[2021-09-08 14:45] LABS: Acetaminophen < 10 mcg/mL (10-20); BUN/Creatinine Ratio 15 (6-26); Blood Urea Nitrogen 15 mg/dL (6-20); Calcium 10.1 mg/dL (8.6-10.3); Carbon Dioxide 27 mEq/L (23-29); Chloride 99 mEq/L (98-107); Ethanol < 10 mg/dL (Less than 10); Glucose 105 mg/dL (70-105); Osmolality,Calculated 283 (280-300); Potassium 3.9 mEq/L (3.5-5.1); Salicylate < 2.5 mg/dL (15.0-30.0); Sodium 136 mEq/L (136-145); eGFR For African Americans > 60 (> 60); eGFR For Non-African Americans 59 (> 60)
[2021-09-08 14:54] LABS: Influenza A PCR Negative (Negative); Influenza B PCR Negative (Negative); Resp. Syncytial Virus PCR Negative (Negative)
[2021-09-08 15:32] LABS: SARS-CoV-2 by PCR (In House) Negative (Negative)
[2021-09-08 16:31] LABS: Bacteria,Urine Few per hpf (None-Few); Bilirubin,Urine Negative (Negative); Blood,Urine Negative (Negative); Clarity,Urine Turbid (Clear); Color,Urine Light-Yellow (Yellow); Glucose,Urine (UA) Normal (Normal); Ketones,Urine Negative (Negative); Leukocyte Esterase,Urine Small (Negative); Nitrite,Urine Negative (Negative); PH,Urine 6.5 pH Units (5.0-8.0); Protein,Urine Negative (Neg-Trace); RBC,Urine 0-3 per hpf (0-3); Specific Gravity,Urine 1.008 (1.010-1.025); Squamous Epithelial Cell,Urine Moderate per hpf (None-Few); Urobilinogen,Urine Normal (Normal); WBC,Urine 0-3 per hpf (0-3)
[2021-09-08 16:56] LABS: Amphetamine Screen,Urine Negative ng/mL (Cutoff=1000); Barbiturate Screen,Urine Negative ng/mL (Cutoff=200); Benzodiazepines Screen,Urine Negative ng/mL (Cutoff=200); Cannabinoid Screen,Urine Negative ng/mL (Cutoff = 50); Cocaine Screen,Urine Negative ng/mL (Cutoff= 300); Opiate Screen,Urine Negative ng/mL (Cutoff=300); Phencyclidine Screen,Urine Negative ng/mL (Cutoff=25)
[2021-09-08] MEDS ORDERED: haloperidoL 5 MG TABLET PO PRN (19:14)
[2021-09-08] MEDS ORDERED: *HR* LORazepam 1 MG TABLET PO PRN (19:14)
[2021-09-08] MEDS ORDERED: Ibuprofen 400 MG TABLET PO PRN (19:14)
[2021-09-08] MEDS ORDERED: Haloperidol Lactate 5 MG/ML VIAL IM PRN (19:14)
[2021-09-08] MEDS ORDERED: *HR* LORazepam 2 MG/ML VIAL IM PRN (19:14)
[2021-09-08] MEDS: hydrOXYzine pamoate 25 MG CAPSULE PO PRN (21:08)
[2021-09-08] MEDS ORDERED: traZODone 50 MG TABLET PO PRN (21:46)
[2021-09-08] MEDS: clonazePAM 1 MG TABLET PO PRN (22:34)
[2021-09-09] MEDS: BuPROPion XL (24 HR) 150 MG TABLET PO SCH (08:59)
[2021-09-09] MEDS ORDERED: Metoprolol XL (24 HR) Succ 50 MG TAB.ER.24H PO SCH (09:00)
[2021-09-09] MEDS: clonazePAM 1 MG TABLET PO PRN (09:41)
[2021-09-09] MEDS ORDERED: MOM Conc 10 ML UD.LIQ PO PRN (12:46)
[2021-09-09] MEDS ORDERED: Mag Hydrox/Al Hydrox/Simeth 30 ML UDC PO PRN (12:46)
[2021-09-09] MEDS: clonazePAM 1 MG TABLET PO SCH ×2 (15:05→21:57)
[2021-09-09] MEDS: Td (TENIVAC) Vaccine 0.5 ML VIAL IM ONE ×2 (19:09→21:59)
[2021-09-09] MEDS: traZODone 50 MG TABLET PO SCH (21:57)
[2021-09-10] MEDS: Metoprolol XL (24 HR) Succ 50 MG TAB.ER.24H PO SCH (08:38)
[2021-09-10] MEDS: clonazePAM 1 MG TABLET PO SCH ×3 (08:39→20:21)
[2021-09-10] MEDS: BuPROPion XL (24 HR) 150 MG TABLET PO SCH (08:39)
[2021-09-10] MEDS: hydrOXYzine pamoate 25 MG CAPSULE PO PRN (12:55)
[2021-09-10] MEDS: traZODone 50 MG TABLET PO SCH (20:21)
[2021-09-11] MEDS: clonazePAM 1 MG TABLET PO SCH (09:18)
[2021-09-11] MEDS: BuPROPion XL (24 HR) 150 MG TABLET PO SCH (09:18)
[2021-09-11] MEDS: Metoprolol XL (24 HR) Succ 50 MG TAB.ER.24H PO SCH (09:18)
[2021-09-11 09:19] VITALS: BP 117/83; PULSE 73; TEMP 98.6; O2SAT 97
[2021-09-11] MEDS ORDERED: FLU Vac QV 21-22 (6Month+)/PF 0.5 ML SYRINGE IM ONE (10:55)
== END 2021-09-11 12:00 | disposition home or self-care (01) | DRG 756 ==
LOC: EMEROOARM 13:32 → 1ANU 19:02
PROVIDERS: ADMIT Psychiatry & Neurology Psychiatry; ATTEND Psychiatry & Neurology Psychiatry